=== PATIENT | female | born 1955 | race Two or more races ===

== ENCOUNTER → 2024-05-15 | Outpatient (CLI) | payer MEDICARE, MEDICAID, SELFPAY ==
[2024-05-15 13:40] LABS: Basophils % (Auto) 1 % (0-2.5); Eosinophils # (Auto) 0.2 Thou/mm3 (0.0-0.5); Eosinophils % (Auto) 6 % (0-10); Hematocrit 33.5 % (36.0-46.0); Immature Granulocytes % (Auto) 1 % (0-0); Immature Granulocytes Auto 0.02 Thou/mm3 (0.00-0.00); Lymphocytes # (Auto) 0.9 Thou/mm3 (1.0-4.8); Lymphocytes % (Auto) 22 % (10-50); Mean Corpuscular HGB Conc 32.8 g/dl (31.0-37.0); Mean Corpuscular Hemoglobin 30.4 pg (25.0-35.0); Mean Corpuscular Volume 93 fL (80-100); Monocytes # (Auto) 0.5 Thou/mm3 (0.0-0.8); Monocytes % (Auto) 11 % (0-12); Neutrophils # (Auto) 2.5 Thou/mm3 (1.8-7.7); Neutrophils % (Auto) 61 % (37-80); Nucleated Red Blood Cell % 0 /100 WBC (0); Platelet Count 104 Thou/mm3 (140-440); RDW Standard Deviation 51.2 fL (36.4-46.3); Red Blood Count 3.62 Miln/mm3 (4.00-5.20); White Blood Count 4.1 Thou/mm3 (3.6-11.0)
[2024-05-15 13:55] LABS: Glucose Estimated Average 140 mg/dL (80-131); Hemoglobin A1C 6.5 % Hgb (4.8-6.0)
[2024-05-15 14:09] LABS: Alanine Aminotransferase 36 U/L (10-49); Albumin, Serum 4.1 gm/dL (3.4-4.8); Alkaline Phosphatase 115 U/L (46-116); Anion Gap 8 (7-16); Aspartate Amino Transferase 48 U/L (0-34); BUN/Creatinine Ratio 21 Ratio (12-20); Bilirubin,Direct 0.3 mg/dL (0.0-0.3); Bilirubin,Total 0.8 mg/dL (0.3-1.2); Blood Urea Nitrogen 35 mg/dL (9-23); Calcium 9.1 mg/dL (8.3-10.6); Carbon Dioxide 25.3 mMol/L (20.0-31.0); Cardiac Risk Estimate 2.5 RATIO (3.7-5.6); Chloride 109 mMol/L (98-107); Cholesterol 135 mg/dL (132-200); Creatinine (Component) 1.7 mg/dL (0.6-1.3); Glucose 127 mg/dL (74-106); HDL Cholesterol 54 mg/dL (40-60); LDL Cholesterol,Calculated 62 mg/dL (0-130); Osmolality,Calculated 293 (275-295); Phosphorous 3.7 mg/dL (2.4-5.1); Potassium 4.4 mMol/L (3.4-5.1); Sodium 142 mMol/L (136-145); Total Protein 6.1 gm/dL (5.7-8.2); Triglycerides 96 mg/dL (30-150); eGFR 32 See Note
== END | disposition home or self-care (01) ==
LOC: COPL 12:22
PROVIDERS: PCP Family Medicine; Referring Provider Internal Medicine Cardiovascular Disease; Visit Provider Internal Medicine
DX: I12.9 Hypertensive chronic kidney disease with stage 1 through stage 4 chronic kidney disease, or unspecified chronic kidney disease (principal); E11.22 Type 2 diabetes mellitus with diabetic chronic kidney disease; N18.30 Chronic kidney disease, stage 3 unspecified; E78.5 Hyperlipidemia, unspecified; G90.1 Familial dysautonomia [Riley-Day]; R94.31 Abnormal electrocardiogram [ECG] [EKG]
CPT/HCPCS: 36415; 80048; 80061; 80076; 81001; 82043; 82570; 83036; 83970; 84100; 85025

== ENCOUNTER → 2024-07-09 | Outpatient (CLI) | payer MEDICARE, BC, MEDICAID, SELFPAY | END | disposition home or self-care (01) | PROVIDERS: Visit Provider Student in an Organized Health Care Education/Training Program | DX: S51.811A Laceration without foreign body of right forearm, initial encounter (principal); W55.03XA Scratched by cat, initial encounter; N18.6 End stage renal disease; I82.401 Acute embolism and thrombosis of unspecified deep veins of right lower extremity | CPT/HCPCS: 99214; G0463 ==

== ENCOUNTER → 2024-07-23 | Outpatient (CLI) | payer MEDICARE, MEDICAID, SELFPAY | END | disposition home or self-care (01) | PROVIDERS: PCP Family Medicine; Referring Provider Family Medicine; Visit Provider Student in an Organized Health Care Education/Training Program | DX: S51.811A Laceration without foreign body of right forearm, initial encounter (principal); W55.03XA Scratched by cat, initial encounter; I82.401 Acute embolism and thrombosis of unspecified deep veins of right lower extremity; N18.6 End stage renal disease | CPT/HCPCS: 99212; G0463 ==

== ENCOUNTER → 2024-09-11 | Outpatient (CLI) | payer BC, SELFPAY ==
--- NOTE | 2024-09-11 | XR_ITS ---
Examination: Diagnostic digital mammography, unilateral, right Computer aided detection 3-D breast Tomosynthesis, unilateral Date and time of exam: September 11, 2024 0913 hours INDICATIONS: Mammogram January 29, 2024 1 numerous microcalcifications upper right breast Technique: Nonmagnified MLO, CC views of the right breast have been obtained, reconstructed from 3-D Tomosynthesis images. R2 computer aided detection program utilized for evaluation of suspicious masses and/or abnormal calcifications. 3-D Tomosynthesis images obtained. Findings: The breast is heterogeneously dense, which may obscure small masses Probably benign focus microcalcifications inner right breast posterior depth Impression: BI-RADS category 3: Probably benign findings Recommend 1 additional 6 month right mammogram follow-up
--- NOTE | 2024-09-11 08:29 | XR_ITS ---
Examination: Breast ultrasound, unilateral, right complete Date and time of exam: September 11, 2024 0856 hours INDICATIONS: Mammogram 01/29/2024 more numerous microcalcifications upper right breast mid depth Technique: Real-time gonzalez scale ultrasonographic imaging performed right breast including all 4 quadrants as well as nipple retroareolar and axillary region. Findings: 11:00 cyst 7 x 5 x 7 mm No solid nodules IMPRESSION: BI-RADS Category 2: Benign findings
--- NOTE | 2024-09-11 08:30 | XR_ITS ---
Examination: Duplex scan of the lower extremity, unilateral right complete Date and time of exam: September 11, 2024 0838 hours INDICATIONS: Onset right ankle pain beginning one year ago Technique: Duplex scan of the extremity veins using B-mode/grayscale imaging and Doppler spectral analysis and color flow Attention is directed to internal echogenicity, compression and augmentation involving these veins, color flow assessment, spectral analysis Findings: Major deep venous structures in the extremity demonstrate normal course and caliber. There is no evidence of deep vein thrombosis. Normal color flow and spectral analysis Impression: Negative for DVT..
== END | disposition home or self-care (01) ==
PROVIDERS: PCP Family Medicine; Referring Provider Family Medicine; Visit Provider Family Medicine
DX: M79.661 Pain in right lower leg (principal); R92.331 Mammographic heterogeneous density, right breast; N60.01 Solitary cyst of right breast
CPT/HCPCS: 76641; 77061; 77065; 93971; G0279

== ENCOUNTER → 2024-10-03 | Outpatient (CLI) | payer BC, SELFPAY ==
--- NOTE | 2024-10-03 | XR_ITS ---
Examination: Bilateral wrists 6 views TECHNIQUE: AP oblique lateral each wrist total 6 views Exam date and time: October 03, 2024 11:59 AM INDICATIONS: Patient fell 3 weeks ago with injury to both wrists, bilateral wrist pain, right wrist surgery December 2023 FINDINGS: Erosive arthritic change right first carpometacarpal joint Prominent osteopenia Soft tissue vascular calcification No acute torus fractures IMPRESSION: No acute torus fractures Erosive arthritic change right first carpometacarpal joint
--- NOTE | 2024-10-03 | XR_ITS ---
Examination: Bilateral hands, 6 views. Technique: AP, Oblique, Lateral each hand total 6 views Date and time of exam: October 03, 2024 1150 hours INDICATIONS: Patient fell 3 weeks ago with injury to both hands, bilateral hand pain Findings: Severe osteopenia Soft tissue vascular calcification no acute fractures Erosive arthritic change involving the right first carpometacarpal joint Moderate narrowing left first carpometacarpal joint IMPRESSION: No acute fractures Erosive arthritic change involving the right first carpometacarpal joint
--- NOTE | 2024-10-03 | XR_ITS ---
Exam: elbow bilateral, 6 views Technique: Elbow AP, oblique lateral each elbow total 6 views Exam date and time: October 03, 2024 1150 hours INDICATIONS: Patient fell 3 weeks ago with injury to both elbows, bilateral elbow pain. FINDINGS: Significant osteopenia No fracture or dislocation involving either elbow Soft tissue vascular calcification Mild ossification left lateral humeral condyle IMPRESSION: No fracture or dislocation involving either elbow
== END | disposition home or self-care (01) ==
LOC: CDIM 11:16
PROVIDERS: PCP Family Medicine
DX: M13.841 Other specified arthritis, right hand (principal); M25.842 Other specified joint disorders, left hand; S69.92XA Unspecified injury of left wrist, hand and finger(s), initial encounter; S69.91XA Unspecified injury of right wrist, hand and finger(s), initial encounter; S59.902A Unspecified injury of left elbow, initial encounter; S59.901A Unspecified injury of right elbow, initial encounter; W19.XXXA Unspecified fall, initial encounter
CPT/HCPCS: 73080; 73110; 73130

== ENCOUNTER → 2025-01-20 | Outpatient (CLI) | payer MEDICARE, BC, MEDICAID, SELFPAY ==
[2025-01-20 14:50] LABS: Basophils # (Auto) 0.0 Thou/mm3 (0.0-0.2); Basophils % (Auto) 0 % (0-2.5); Eosinophils # (Auto) 0.1 Thou/mm3 (0.0-0.5); Eosinophils % (Auto) 1 % (0-10); Hematocrit 38.1 % (36.0-46.0); Hemoglobin 13.1 g/dL (12.0-16.0); Immature Granulocytes Auto 0.12 Thou/mm3 (0.00-0.00); Lymphocytes # (Auto) 0.9 Thou/mm3 (1.0-4.8); Lymphocytes % (Auto) 12 % (10-50); Mean Corpuscular HGB Conc 34.4 g/dl (31.0-37.0); Mean Corpuscular Hemoglobin 32.2 pg (25.0-35.0); Mean Corpuscular Volume 94 fL (80-100); Monocytes # (Auto) 0.6 Thou/mm3 (0.0-0.8); Monocytes % (Auto) 8 % (0-12); Neutrophils # (Auto) 6.0 Thou/mm3 (1.8-7.7); Neutrophils % (Auto) 77 % (37-80); Nucleated Red Blood Cell # 0.00 Thou/mm3 (0.00-0.00); Nucleated Red Blood Cell % 0 /100 WBC (0); Platelet Count 124 Thou/mm3 (140-440); RDW Standard Deviation 47.0 fL (36.4-46.3); Red Blood Count 4.07 Miln/mm3 (4.00-5.20); White Blood Count 7.8 Thou/mm3 (3.6-11.0)
[2025-01-20 14:56] LABS: Parathyroid Hormone Intact 137.9 pg/ml (18.5-88.0)
[2025-01-20 15:00] LABS: Vitamin D 25 Hydroxy Total 31.9 ng/mL (7.3-40.2)
[2025-01-20 15:01] LABS: Alanine Aminotransferase 12 U/L (10-49); Albumin, Serum 3.8 gm/dL (3.4-4.8); Albumin/Globulin Ratio 2.1 (1.2-2.2); Alkaline Phosphatase 103 U/L (46-116); Anion Gap 12 (7-16); Aspartate Amino Transferase 22 U/L (0-34); BUN/Creatinine Ratio 10 Ratio (12-20); Bilirubin,Total 0.7 mg/dL (0.3-1.2); Blood Urea Nitrogen 31 mg/dL (9-23); Calcium 9.5 mg/dL (8.3-10.6); Calcium (Corrected) 9.7 mg/dL (8.5-10.1); Carbon Dioxide 25.2 mMol/L (20.0-31.0); Cardiac Risk Estimate 3.8 RATIO (3.7-5.6); Chloride 104 mMol/L (98-107); Cholesterol 215 mg/dL (132-200); Creatinine (Component) 3.1 mg/dL (0.6-1.3); Globulin 1.8 gm/dL (2.3-3.5); Glucose 231 mg/dL (74-106); HDL Cholesterol 56 mg/dL (40-60); LDL Cholesterol,Calculated 121 mg/dL (0-130); Osmolality,Calculated 294 (275-295); Potassium 3.6 mMol/L (3.4-5.1); Sodium 141 mMol/L (136-145); Thyroid Stimulating Hormone 2.14 uIU/mL (0.55-4.78); Total Protein 5.6 gm/dL (5.7-8.2); Triglycerides 191 mg/dL (30-150); eGFR 16 See Note
[2025-01-20 15:12] LABS: Glucose Estimated Average 171 mg/dL (80-131); Hemoglobin A1C 7.6 % Hgb (4.8-6.0)
== END | disposition home or self-care (01) ==
PROVIDERS: PCP Family Medicine; Referring Provider Internal Medicine; Visit Provider Family Medicine
DX: Z00.00 Encounter for general adult medical examination without abnormal findings (principal); E11.40 Type 2 diabetes mellitus with diabetic neuropathy, unspecified; E78.2 Mixed hyperlipidemia; I12.9 Hypertensive chronic kidney disease with stage 1 through stage 4 chronic kidney disease, or unspecified chronic kidney disease; E11.22 Type 2 diabetes mellitus with diabetic chronic kidney disease; N18.32 Chronic kidney disease, stage 3b; E03.9 Hypothyroidism, unspecified
CPT/HCPCS: 36415; 80053; 80061; 81001; 82043; 82306; 82570; 83036; 83970; 84443; 85025

== ENCOUNTER → 2025-01-27 | Outpatient (CLI) | payer MEDICARE, BC, MEDICAID, SELFPAY ==
[2025-01-27 11:09] LABS: Collection Type, Urine Clean Catch
[2025-01-27 11:47] LABS: Creatinine MALB Rnd Ur 79 mg/dL (30-125); Microalbumin Creat Ratio 481 mg/gCrea (<30); Microalbumin, Random Urine > 380 mg/L (0-300)
[2025-01-27 15:06] LABS: Bilirubin,Urine Negative (Negative); Blood,Urine Negative (Negative); Clarity,Urine Clear (Clear/Hazy); Color,Urine Lt-Yellow (Lt Yel-Yel); Glucose, Urine 2+ (Negative); Ketones,Urine Negative (Negative); Leukocyte Esterase,Urine Negative (Negative); Nitrite,Urine Negative (Negative); PH,Urine 6.0 (5.0-7.0); Protein,Urine 2+ (Neg - Trace); RBC,Urine 7 /hpf (0-3); Specific Gravity,Urine 1.015 (1.001-1.035); Squamous Epithelial Cell,Urine 1 /hpf (0-5); Urobilinogen,Urine Negative mg/dL (0.0-1.0); WBC,Urine 2 /hpf (0-5)
== END | disposition home or self-care (01) ==
LOC: SLDO 10:59
PROVIDERS: PCP Family Medicine; Referring Provider Family Medicine; Visit Provider Family Medicine
DX: Z00.00 Encounter for general adult medical examination without abnormal findings (principal); E11.40 Type 2 diabetes mellitus with diabetic neuropathy, unspecified; E78.2 Mixed hyperlipidemia; I12.9 Hypertensive chronic kidney disease with stage 1 through stage 4 chronic kidney disease, or unspecified chronic kidney disease; E03.9 Hypothyroidism, unspecified; N18.32 Chronic kidney disease, stage 3b
CPT/HCPCS: 81001; 82043; 82570

== ENCOUNTER → 2025-04-24 | Outpatient (CLI) | payer MEDICARE, BC, MEDICAID, SELFPAY ==
[2025-04-24 16:59] LABS: Collection Type, Urine Clean Catch
[2025-04-24 17:13] LABS: Basophils # (Auto) 0.0 Thou/mm3 (0.0-0.2); Basophils % (Auto) 1 % (0-2.5); Eosinophils # (Auto) 0.1 Thou/mm3 (0.0-0.5); Eosinophils % (Auto) 1 % (0-10); Hematocrit 36.3 % (36.0-46.0); Hemoglobin 12.7 g/dL (12.0-16.0); Immature Granulocytes Auto 0.08 Thou/mm3 (0.00-0.00); Lymphocytes # (Auto) 0.9 Thou/mm3 (1.0-4.8); Lymphocytes % (Auto) 16 % (10-50); Mean Corpuscular HGB Conc 35.0 g/dl (31.0-37.0); Mean Corpuscular Hemoglobin 31.1 pg (25.0-35.0); Mean Corpuscular Volume 89 fL (80-100); Monocytes # (Auto) 0.4 Thou/mm3 (0.0-0.8); Monocytes % (Auto) 6 % (0-12); Neutrophils # (Auto) 4.4 Thou/mm3 (1.8-7.7); Neutrophils % (Auto) 75 % (37-80); Nucleated Red Blood Cell # 0.00 Thou/mm3 (0.00-0.00); Nucleated Red Blood Cell % 0 /100 WBC (0); Platelet Count 139 Thou/mm3 (140-440); RDW Standard Deviation 44.5 fL (36.4-46.3); Red Blood Count 4.08 Miln/mm3 (4.00-5.20); White Blood Count 5.9 Thou/mm3 (3.6-11.0)
[2025-04-24 17:15] LABS: Bacteria,Urine Rare; Bilirubin,Urine 1+ (Negative); Blood,Urine 2+ (Negative); Color,Urine Yellow (Lt Yel-Yel); Glucose, Urine 4+ (Negative); Hyaline Casts,Urine < 1 /hpf (0-1); Ketones,Urine Trace (Negative); Leukocyte Esterase,Urine Negative (Negative); Nitrite,Urine Negative (Negative); PH,Urine 6.5 (5.0-7.0); Protein,Urine 3+ (Neg - Trace); RBC,Urine 7 /hpf (0-3); Specific Gravity,Urine 1.034 (1.001-1.035); Squamous Epithelial Cell,Urine 9 /hpf (0-5); Urobilinogen,Urine Negative mg/dL (0.0-1.0); WBC,Urine 18 /hpf (0-5)
[2025-04-24 17:22] LABS: Glucose Estimated Average 200 mg/dL (80-131); Hemoglobin A1C 8.6 % Hgb (4.8-6.0); Parathyroid Hormone Intact 124.8 pg/ml (18.5-88.0)
[2025-04-24 17:25] LABS: Albumin, Serum 3.8 gm/dL (3.4-4.8); Anion Gap 11 (7-16); BUN/Creatinine Ratio 9 Ratio (12-20); Blood Urea Nitrogen 28 mg/dL (9-23); Calcium 8.8 mg/dL (8.3-10.6); Calcium (Corrected) 9.0 mg/dL (8.5-10.1); Carbon Dioxide 22.8 mMol/L (20.0-31.0); Chloride 107 mMol/L (98-107); Creatinine (Component) 3.1 mg/dL (0.6-1.3); Glucose 252 mg/dL (74-106); Magnesium 1.5 mg/dL (1.6-2.6); Osmolality,Calculated 295 (275-295); Phosphorous 3.3 mg/dL (2.4-5.1); Potassium 3.8 mMol/L (3.4-5.1); Sodium 141 mMol/L (136-145); eGFR 16 See Note
[2025-04-24 17:35] LABS: Creatinine MALB Rnd Ur 279 mg/dL (30-125)
[2025-04-24 17:36] LABS: Microalbumin Creat Ratio 1362 mg/gCrea (<30); Microalbumin, Random Urine > 3800 mg/L (0-300)
[2025-04-24 17:58] LABS: Clarity,Urine Hazy (Clear/Hazy); Culture Indicated,Urine Yes
[2025-04-24 18:16] LABS: Hepatitis A Antibody IgM Non Reactive (Non React); Hepatitis B Core Antibody IgM Non Reactive (Non React); Hepatitis B Surface Antigen Non Reactive (Non React); Hepatitis C Antibody Non Reactive (Non React)
== END | disposition home or self-care (01) ==
LOC: COPL 16:17
PROVIDERS: PCP Family Medicine; Referring Provider Internal Medicine; Visit Provider Internal Medicine
DX: I12.9 Hypertensive chronic kidney disease with stage 1 through stage 4 chronic kidney disease, or unspecified chronic kidney disease (principal); E11.22 Type 2 diabetes mellitus with diabetic chronic kidney disease; N18.4 Chronic kidney disease, stage 4 (severe); E78.5 Hyperlipidemia, unspecified
CPT/HCPCS: 36415; 80069; 80074; 81001; 82043; 82570; 83036; 83735; 83970; 85025; 87077; 87086; 87186

== ENCOUNTER → 2025-04-24 | Outpatient (CLI) | payer MEDICARE, BC, MEDICAID, SELFPAY ==
[2025-04-24 14:16] LABS: Collection Type, Urine Clean Catch
[2025-04-24 15:36] LABS: Bacteria,Urine Rare; Bilirubin,Urine Negative (Negative); Blood,Urine 1+ (Negative); Color,Urine Yellow (Lt Yel-Yel); Glucose, Urine 3+ (Negative); Ketones,Urine 1+ (Negative); Leukocyte Esterase,Urine Positive (Negative); Nitrite,Urine Negative (Negative); PH,Urine 6.0 (5.0-7.0); Protein,Urine 3+ (Neg - Trace); RBC,Urine 11 /hpf (0-3); Specific Gravity,Urine 1.029 (1.001-1.035); Squamous Epithelial Cell,Urine 46 /hpf (0-5); Urobilinogen,Urine Negative mg/dL (0.0-1.0); WBC,Urine 28 /hpf (0-5)
[2025-04-24 15:46] LABS: Clarity,Urine Hazy (Clear/Hazy)
== END | disposition home or self-care (01) ==
PROVIDERS: PCP Family Medicine; Referring Provider Family Medicine; Visit Provider Family Medicine
DX: R31.0 Gross hematuria (principal)
CPT/HCPCS: 81001; 87077; 87086; 87186

== ENCOUNTER 2025-04-26 09:41 | Inpatient (IN) | payer MEDICARE, BC, MEDICAID, SELFPAY ==
--- NOTE | 2025-04-26 | XR_ITS ---
Examinations: MRI Brain without intravenous contrast. MRA brain without intravenous contrast. MRA carotids without intravenous contrast 3-D vascular reconstructions Date and time of exam: April 26, 2025, 1745 hours INDICATIONS: Stroke alert today, onset focal neurologic deficit head pain difficulty speaking Technique: Multiple axial and sagittal images of the brain have been obtained MRA brain carotid images without contrast obtained, including 3-D postprocessing, vascular maximum intensity projection images Findings: Sell[place] is not enlarged. The optic chiasm and infundibular stalk are not remarkable. Prepontine and interpeduncular cisterns are not enlarged. No localized enlargement of the medulla or navid. Fourth ventricle and cerebellar tonsils normal in position. Subacute hemorrhage is not seen. Fourth ventricle is midline. Mass in the cerebellopontine angle region is not evident. 7th and 8th nerve complexes exhibits symmetry. Globes are symmetrical with no retro-orbital mass. Increased white matter signal prominent Diffusion-weighted images demonstrate no focus of restricted diffusion Mass-effect upon the ventricular system is not identified. MRA brain images no large vessel occlusions Impression: Negative for acute hemorrhage, mass effect or midline shift No acute infarct Prominent chronic microvascular white matter change No cerebral large vessel arterial occlusions
--- NOTE | 2025-04-26 09:43 | PD.EDNEURO ---
Neuro Symptoms Deficit-RME/HPI General Chief Complaint: Neuro Symptoms/Deficit Stated Complaint: STOKE SYMPTOMS Time Seen by Provider: 04/26/25 09:53 Arrival date/time: 04/26/25 09:41 Related Data Home Medications ?Medication ?Instructions ?Recorded ?Confirmed calcitriol 0.25 mcg capsule 0.25 mcg PO DAILY 04/29/22 04/26/25 insulin glargine U-300 conc 300 20 unit subcut DAILY 04/29/22 04/26/25 unit/mL (3 mL) subcutaneous pen (Toujeo Max U-300 SoloStar) meclizine 25 mg tablet 25 mg PO TID PRN Dizziness 04/29/22 04/26/25 montelukast 10 mg tablet 10 mg PO DAILY 04/29/22 04/26/25 pregabalin 150 mg capsule 150 mg PO BID 04/29/22 04/26/25 rosuvastatin 40 mg tablet 25 mg PO DAILY 04/29/22 04/26/25 valsartan 160 mg tablet 160 mg PO EVERYOTHERDAY 04/29/22 04/26/25 albuterol sulfate 90 mcg/actuation 2 puff inhalation QDAY 04/26/25 04/26/25 aerosol inhaler amlodipine 2.5 mg tablet 2.5 mg PO QDAY 04/26/25 04/26/25 clopidogrel 75 mg tablet 75 mg PO QDAY 04/26/25 04/26/25 donepezil 5 mg tablet 5 mg PO QDAY 04/26/25 04/26/25 fluticasone 500 mcg-salmeterol 50 1 inh inhalation BID 04/26/25 04/26/25 mcg/dose blistr powdr for inhalation (Wixela Inhub) hydrocodone 10 mg-acetaminophen 1 tab PO Q6HR 04/26/25 04/26/25 325 mg tablet levothyroxine 100 mcg tablet 100 mcg PO QDAY 04/26/25 04/26/25 tirzepatide 10 mg/0.5 mL 10 mg subcut QWEEK 04/26/25 04/26/25 subcutaneous pen injector (Sary) zinc sulfate 50 mg zinc (220 mg) 50 mg PO DAILY 04/26/25 04/26/25 capsule Previous Rx's ?Medication ?Instructions ?Recorded blood-glucose sensor (CarolineStyle #1 ea 04/28/25 Darek 3 Plus Sensor device) blood-glucose,closet organizer,cont #1 ea 04/28/25 (FreeStyle Darek 3 [place]) Allergies Allergy/AdvReac Type Severity Reaction Status Date / Time moxifloxacin (From Avelox) Allergy ITCHING Verified 04/26/25 10:25 Past Medical History Past Medical History CARDIAC: Positive Hypercholesterolemia and Hypertension RESPIRATORY: Positive Asthma GENITOURINARY: Positive Renal Disease MUSCULOSKELETAL: Positive Carpal Tunnel Syndrome (RIGHT HAND) ENT: Positive Cataracts (BILATERAL) ENDOCRINE: Positive Diabetes Mellitus Type 2 OTHER HISTORY: Positive Falls Surgical History SURGICAL: Positive Thyroidectomy ED Exam Narrative Physical exam: See MDM for Dr. Smith's Physical Exam Documentation. Course Quality Measures none Orders Category Date Time Status Bedside Blood Glucose NOW Care 04/26/25 09:44 Completed Bedside COVID-19 Antigen Test NOW Care 04/26/25 09:45 Completed Bedside Influenza A&B Antigen Test NOW Care 04/26/25 09:45 Completed COVID-19 Screening Questionnaire NOW Care 04/26/25 11:56 Completed Laboratory Director Q4H START 00 Care 04/26/25 09:44 Active Continuous Pulse Oximetry NOW Care 04/26/25 09:44 Completed Decision to Admit X1 Care 04/26/25 11:56 Completed EKG (ED ONLY) *Do not use* NOW Care 04/26/25 09:44 Completed In and Out Catheter NEEDED Care 04/26/25 09:44 Active Insert IV NOW Care 04/26/25 09:44 Completed NIH Stroke Scale now Care 04/26/25 09:44 Completed NPO NOW Care 04/26/25 09:44 Completed Nurse Swallow Screen x1 Care 04/26/25 09:[address] angio stroke protocol Stat Exams 04/26/25 09:[address] stroke protocol Stat Exams 04/26/25 09:44 Completed EKG (ED Only) Stat Exams 04/26/25 09:44 Draft XR chest 1V portable Stat Exams 04/26/25 09:44 Completed Alcohol, Blood Medical Stat Lab 04/26/25 10:03 Completed B-Type Natriuretic Peptide Stat Lab 04/26/25 10:03 Completed Bilirubin,Direct Stat Lab 04/26/25 10:03 Completed Blood Culture (Lab) Stat Lab 04/26/25 10:48 Results CBC Stat Lab 04/26/25 10:03 Completed CRP [C-Reactive Protein] Stat Lab 04/26/25 10:03 Completed Comprehensive Metabolic Panel Stat Lab 04/26/25 10:03 Completed Drug Screen,Urine Stat Lab 04/26/25 20:55 Completed ESR [Sed Rate (ESR)] Stat Lab 04/26/25 10:03 Completed Free T4 (Free Thyroxine) Stat Lab 04/26/25 10:03 Completed Hemoglobin A1C [Glycohemoglobin w (eAG)] Stat Lab 04/26/25 10:03 Completed Lactate (Lactic Acid) Stat Lab 04/26/25 10:03 Completed Magnesium Stat Lab 04/26/25 10:03 Completed Partial Thromboplastin Time Stat Lab 04/26/25 10:03 Completed Procalcitonin Stat Lab 04/26/25 10:03 Completed Prothrombin Time with INR Stat Lab 04/26/25 10:03 Completed TSH [Thyroid Stimulating Hormone] Stat Lab 04/26/25 10:03 Completed Troponin I Stat Lab 04/26/25 10:03 Completed Urinalysis, C/S if Indicated Stat Lab 04/26/25 20:55 Completed Labetalol* IV [Trandate IV] Med 04/26/25 09:44 Discontinued 10 mg IVP Q15M PRN Ondansetron Inj [Zofran Inj] Med 04/26/25 09:44 Active 4 mg IVP Q4HR PRN Ringers Lactated 1000 ml [Lactated Ringers] 1,000 ml Med 04/26/25 09:45 Discontinued IV 500 mls/hr Oxygen Delivery NOW RT 04/26/25 09:44 Active Vital Signs Vital signs: Vital Signs Pulse Rate 65 04/26/25 09:44 Neuro Symptoms / Deficit MDM Narrative MDM Narrative:: This section includes all my notes and documentations, including HPI, PE, and ED course. Young Smith MD HPI: 69 y/o female with Hx of HTN, HLD, Type II DM, and Renal Disease presents with possible stroke. Since last night, she and family report weakness with inability to stand and walk and slurred speech. No obvious right-sided weakness or left-sided weakness. No fever or chills. No other complaints. ROS: All negative except as documented in HPI. Physical Exam: General: Alert and oriented. Eyes: Conjunctivae and lids clear. EOMI. PERRL. ENT: No nasal congestion. Neck: Supple. No carotid bruit. No JVD. Heart: RRR. Lungs: No respiratory distress. Good air movement. No severe rhonchi, wheezing, rales. Chest: No tenderness. Abdomen: Soft and nontender. Normal bowel sounds. No distension. No rebound or guarding. Back: No CVA tenderness. Legs: No clubbing, cyanosis, edema. Skin: Warm and dry. Neuro: Alert and oriented X 3. Cranial Nerves II-XII grossly intact. No asymmetrical peripheral motor deficits. Musculoskeletal: All major joints and bones are not tender with no limited ROM. I reviewed EMS notes. I reviewed all diagnostic test results: My interpretation of the EKG is: Sinus rhythm (71 bpm) with nonspecific ST-T changes. My interpretation of the chest x-ray is increased vascular congestion. My review of the Head/Brain CT report is subtle low density in the right temporal lobe. My review of the Head/Neck CTA report is: NAD. Blood tests and urine tests unremarkable except Cr 3.0 (chronic). Covid/Influenza negative. At this point, diagnoses include: Strokelike symptoms. Patient remained stable. I discussed the case with our telehealth neurologist. About the presentation and exam and diagnostics and treatments here. Recommended admission for further care. I discussed the case with our hospitalist. About the presentation and exam and diagnostics and treatments here. And need of further care in the hospital. Will accept the patient. Young Smith MD Patient data External records reviewed:: [facility] previous records (No recent ED records available for review.) and EMS form Clinical information provided by:: EMS Social determinants that could affect healthcare access:: none Patient has the following chronic illnesses:: Hypercholesterolemia, Hypertension, Asthma, Renal Disease, Carpal Tunnel Syndrome, Cataracts, Diabetes Mellitus Type 2 How is presenting disease/condition affected by chronic disease/condition?: exacerbated by Evaluation data The following diagnostics were reviewed and interpreted by me:: lab results, radiology exam(s) and EKG tracing(s) (My interpretation of the EKG is: Sinus rhythm (71 bpm) with nonspecific ST-T changes. Young Smith MD) Lab and/or radiology exams considered but not ordered:: None Interpretation Summary: I reviewed all diagnostic test results: My interpretation of the EKG is: Sinus rhythm (71 bpm) with nonspecific ST-T changes. My interpretation of the chest x-ray is increased vascular congestion. My review of the Head/Brain CT report is subtle low density in the right temporal lobe. My review of the Head/Neck CTA report is: NAD. Blood tests and urine tests unremarkable except Cr 3.0 (chronic). Covid/Influenza negative. Medications / Prescriptions Medications or Prescriptions considered but not ordered:: None Medication administrations:: Medication Administration History Acetaminophen (Acetaminophen 325 Mg Tablet) 650 mg PO Q6H PRN PRN Reason: Fever >100.5 or pain 1-3 Stop: 05/26/25 13:00 Hydrocodone Bitart/Acetaminophen (Hydrocodone/Apap 10/325 Tab) 1 tab PO Q4HR PRN PRN Reason: PAIN SCALE 7-10 (Severe Stop: 05/01/25 13:00 Last Admin: 04/26/25 15:34 Dose: 1 tab Documented By: DIA Ascorbic Acid (Ascorbic Acid 250 Mg Tablet) 500 mg PO BID FOR[facility]LY [facility], 1928–1983 Stop: 05/27/25 08:59 Last Admin: 04/28/25 21:35 Dose: 500 mg Documented By: Admin: 04/28/25 08:31 Dose: 500 mg Documented By: santo Admin: 04/27/25 21:08 Dose: 500 mg Documented By: Admin: 04/27/25 09:09 Dose: Not Given Documented By: SHAYLA Non-Admin Reason: Patient Refused Aspirin (Aspirin Ec 81 Mg Tabec) 81 mg PO QDAY [facility], [facility]1983 Stop: 05/27/25 08:59 Last Admin: 04/28/25 08:31 Dose: 81 mg Documented By: santo Admin: 04/27/25 08:09 Dose: 81 mg Documented By: SHAYLA Calcitriol (Calcitriol 0.25 Mcg Capsule) 0.25 mcg PO QDAY [facility], [facility]–1983 Stop: 05/27/25 10:14 Last Admin: 04/28/25 08:30 Dose: 0.25 mcg Documented By: santo Admin: 04/27/25 10:08 Dose: Not Given Documented By: SHAYLA Non-Admin Reason: NPO Citric Acid/Sodium Citrate (Citric Acid/Sodium Citr 15 Ml Udc (Bicitra)) 30 ml PO BID [facility], [facility]–1983 Stop: 05/27/25 20:59 Last Admin: 04/28/25 21:35 Dose: 30 ml Documented By: Admin: 04/28/25 08:30 Dose: 30 ml Documented By: santo Admin: 04/27/25 21:08 Dose: 30 ml Documented By: CATHLEEN Clopidogrel Bisulfate (Clopidogrel Bisulfate 75 Mg Tablet) 75 mg PO QDAY [facility], [facility]–1983 Stop: 05/27/25 08:59 Last Admin: 04/28/25 08:30 Dose: 75 mg Documented By: santo Admin: 04/27/25 08:10 Dose: 75 mg Documented By: [email or web address] Dextrose (Dextrose 50%-Water Inj 50 Ml Syringe) 25 ml IV Q15MIN PRN PRN Reason: BG 50-70 responsive npo pt Stop: 05/26/25 13:14 Dextrose (Dextrose 50%-Water Inj 50 Ml Syringe) 50 ml IV Q15MIN PRN PRN Reason: BG <50 OR BG <70 & pt unresponsive Stop: 05/26/25 13:14 Donepezil HCl (Donepezil Hcl 5 Mg Tablet) 5 mg PO QDAY [facility], [facility]–1983 Stop: 05/27/25 08:59 Last Admin: 04/28/25 08:30 Dose: 5 mg Documented By: santo Admin: 04/27/25 08:10 Dose: 5 mg Documented By: [email or web address] Glucagon (Glucagon Inj 1 Mg Vial) 1 mg IM Q15MIN PRN PRN Reason: BG <70, and no IV access Insulin Human Lispro (Insulin Lispro (Admelog) 1 Unit/0.01 Ml Unit) 0 unit SC [facility]; Protocol Stop: 05/28/25 20:59 Last Admin: 04/28/25 21:48 Dose: 2 unit Documented By: CATHLEEN Co-signed By: JANIS Labetalol HCl (Labetalol Inj 5 Mg/Ml Vial 4 Ml) 10 mg IVP X1 PRN PRN Reason: sbp > 220 or dbp >120 Levothyroxine Sodium (Levothyroxine Sodium 100 Mcg Tablet) 100 mcg PO ACBR [facility], [facility]1983 Stop: 05/27/25 05:59 Last Admin: 04/28/25 05:16 Dose: 100 mcg Documented By: Admin: 04/27/25 05:21 Dose: 100 mcg Documented By: CATHLEEN Comments: okay to give po meds with a sip of water per dr irene Meclizine HCl (Meclizine Hcl 25 Mg Tablet) 25 mg PO TID PRN PRN Reason: DIZZINESS Stop: 05/26/25 16:56 Montelukast Sodium (Montelukast Sodium 10 Mg Tablet) 10 mg PO DAILY [facility], [facility]1983 Stop: 05/27/25 08:59 Last Admin: 04/28/25 08:31 Dose: 10 mg Documented By: santo Admin: 04/27/25 08:10 Dose: 10 mg Documented By: SHAYLA Nifedipine (Nifedipine Xl 30 Mg Tabcr) 30 mg PO QDAY [facility], [facility]1983 Stop: 05/28/25 08:59 Last Admin: 04/28/25 08:58 Dose: 30 mg Documented By: santo Ondansetron HCl (Ondansetron Inj 2 Mg/Ml Inj 2 Ml) 4 mg IVP Q4HR PRN PRN Reason: NAUSEA OR VOMITING Stop: 05/26/25 09:43 Oxycodone/Acetaminophen (Oxycodone/Apap 5/325 Tablet) 1 tab PO Q6H PRN PRN Reason: PAIN SCALE 4-6 (Moderate Stop: 05/01/25 13:00 Pantoprazole Sodium (Pantoprazole Inj 40 Mg Vial) 40 mg IVP BID [facility], [facility]1983 Stop: 05/26/25 20:59 Last Admin: 04/28/25 21:35 Dose: 40 mg Documented By: Admin: 04/28/25 08:30 Dose: 40 mg Documented By: santo Admin: 04/27/25 21:08 Dose: 40 mg Documented By: Admin: 04/27/25 08:09 Dose: 40 mg Documented By: Admin: 04/26/25 22:16 Dose: 40 mg Documented By: CATHLEEN Fluticasone/Salmeterol (Fluticasone/Salmeterol 100/50 14 Dose Inh) 1 puff INH BIDRT [facility], [facility]1983 Stop: 05/26/25 18:59 Last Admin: 04/28/25 19:44 Dose: 1 puff Documented By: Admin: 04/28/25 08:15 Dose: 1 puff Documented By: Admin: 04/27/25 19:56 Dose: 1 puff Documented By: Admin: 04/27/25 13:43 Dose: 1 puff Documented By: Admin: 04/26/25 19:51 Dose: 1 puff Documented By: [email or web address] Comments: 100/50 Thiamine HCl (Thiamine Inj 100 Mg/Ml Vial 2 Ml) 200 mg IVP QDAY [facility], [facility]1983 Stop: 05/27/25 08:59 Last Admin: 04/28/25 08:30 Dose: 200 mg Documented By: santo Admin: 04/27/25 09:10 Dose: Not Given Documented By: SHAYLA Non-Admin Reason: Patient Refused Zinc Sulfate (Zinc Sulfate 220 Mg Capsule) 220 mg PO QDAY [facility], [facility]1983 Stop: 05/27/25 08:59 Last Admin: 04/28/25 08:30 Dose: 220 mg Documented By: santo Admin: 04/27/25 09:10 Dose: Not Given Documented By: SHAYLA Non-Admin Reason: Patient Refused Discontinued Medications Amlodipine Besylate (Amlodipine Besylate 2.5 Mg Tablet) 2.5 mg PO QDAY [facility], [facility]1983 Stop: 05/27/25 08:59 Last Admin: 04/28/25 08:31 Dose: 2.5 mg Documented By: santo Admin: 04/27/25 08:09 Dose: 2.5 mg Documented By: SHAYLA Amlodipine Besylate (Amlodipine Besylate 2.5 Mg Tablet) 5 mg PO QDAY [facility], [facility]1983 Stop: 05/29/25 08:59 Benzocaine (Benzocaine 20% (Hurricaine) Lutsen 1 Dose) 0 dose TOP X1 ONE Stop: 04/27/25 16:23 Diphenhydramine HCl (Diphenhydramine Inj 50 Mg/Ml Vial) 25 mg IVP PRNMRX1 PRN PRN Reason: MODERATE SEDATION Stop: 04/27/25 18:23 Diphenhydramine HCl (Diphenhydramine Inj 50 Mg/Ml Vial) Confirm Administered Dose 50 mg .ROUTE .STK-MED ONE Stop: 04/27/25 16:35 Diphenhydramine HCl (Diphenhydramine Inj 50 Mg/Ml Vial) Confirm Administered Dose 50 mg .ROUTE .STK-MED ONE Stop: 04/28/25 17:00 Diphenhydramine HCl (Diphenhydramine Inj 50 Mg/Ml Vial) 25 mg IVP PRNMRX1 PRN PRN Reason: MODERATE SEDATION Stop: 04/28/25 19:12 Fentanyl Citrate (Fentanyl Cit Inj 50 Mcg/Ml Amp 2ml) 50 mcg IVP Q2M PRN PRN Reason: MODERATE SEDATION Stop: 04/27/25 18:23 Fentanyl Citrate (Fentanyl Cit Inj 50 Mcg/Ml Amp 2ml) Confirm Administered Dose 100 mcg .ROUTE .STK-MED ONE Stop: 04/27/25 16:35 Fentanyl Citrate (Fentanyl Cit Inj 50 Mcg/Ml Amp 2ml) Confirm Administered Dose 100 mcg .ROUTE .STK-MED ONE Stop: 04/28/25 17:00 Fentanyl Citrate (Fentanyl Cit Inj 50 Mcg/Ml Amp 2ml) 50 mcg IVP Q2M PRN PRN Reason: MODERATE SEDATION Stop: 04/28/25 19:12 Heparin Sodium (Porcine) (Heparin Sod Inj 5000 Unit/Ml Vial) 5,000 unit SC Q12HR [facility], [facility]1983 Stop: 05/10/25 20:59 Hydralazine HCl (Hydralazine Hcl 10 Mg Tablet) 10 mg PO X1 ONE Stop: 04/27/25 00:51 Last Admin: 04/27/25 02:25 Dose: 10 mg Documented By: CATHLEEN Lactated Ringer's (Lactated Ringers) 1,000 mls @ 500 mls/hr IV .Q2H ONE Stop: 04/26/25 11:44 Last Infusion: 04/26/25 12:35 Dose: Infused Documented By: Admin: 04/26/25 10:35 Dose: 500 mls/hr Documented By: DIA Insulin Human Lispro (Insulin Lispro (Admelog) 1 Unit/0.01 Ml Unit) 0 unit SC Q6HR JAYLYN; Protocol Stop: 05/26/25 13:29 Last Admin: 04/28/25 11:57 Dose: 2 unit Documented By: santo Co-signed By: JAMISON Admin: 04/28/25 05:17 Dose: Not Given Documented By: CATHLEEN Non-Admin Reason: Per Protocol Admin: 04/28/25 00:29 Dose: Not Given Documented By: CATHLEEN Non-Admin Reason: Per Protocol Admin: 04/27/25 17:52 Dose: Not Given Documented By: SHAYLA Non-Admin Reason: Per Protocol Admin: 04/27/25 11:19 Dose: Not Given Documented By: SHAYLA Non-[place] Reason: Per Protocol Admin: 04/27/25 05:33 Dose: Not Given Documented By: CATHLEEN Non-Admin Reason: Per Protocol Admin: 04/27/25 02:30 Dose: Not Given Documented By: CATHLEEN Non-Admin Reason: Per Protocol Admin: 04/26/25 19:01 Dose: Not Given Documented By: DIA Non-Admin Reason: Per Protocol Admin: 04/26/25 15:31 Dose: 1 unit Documented By: DIA Co-signed By: DEE DEE Labetalol HCl (Labetalol Inj 5 Mg/Ml Vial 4 Ml) 10 mg IVP Q15M PRN PRN Reason: hypertension Last Admin: 04/26/25 11:43 Dose: 10 mg Documented By: Admin: 04/26/25 10:34 Dose: 10 mg Documented By: DIA Comments: HR 65 BP 215/89 Lorazepam (Lorazepam 2 Mg/Ml Vial) 2 mg IVP X1 ONE Stop: 04/26/25 16:58 Last Admin: 04/26/25 17:08 Dose: 2 mg Documented By: DIA Meperidine HCl (Meperidine Inj 50 Mg/Ml Vial) 25 mg IVP Q2M PRN PRN Reason: MODERATE SEDATION Stop: 04/27/25 18:23 Midazolam HCl (Midazolam Inj 1 Mg/Ml Vial 2 Ml) 2 mg IVP Q2M PRN PRN Reason: Moderate Sedation Stop: 04/27/25 18:22 Midazolam HCl (Midazolam Inj 1 Mg/Ml Vial 2 Ml) Confirm Administered Dose 4 mg .ROUTE .STK-MED ONE Stop: 04/27/25 16:35 Midazolam HCl (Midazolam Inj 1 Mg/Ml Vial 2 Ml) Confirm Administered Dose 4 mg .ROUTE .STK-MED ONE Stop: 04/28/25 17:00 Midazolam HCl (Midazolam Inj 1 Mg/Ml Vial 2 Ml) 2 mg IVP Q2M PRN PRN Reason: Moderate Sedation Stop: 04/28/25 19:12 Polyethylene Glycol/Electrolytes (Na Berry/Nahco3/Pramod/Peg (Golytely) 4,000 Ml Btl) 4,000 ml PO X1 PRN PRN Reason: BOWEL PREP Last Admin: 04/27/25 17:52 Dose: 1 bottle Documented By: SHAYLA Pregabalin (Pregabalin 75 Mg Capsule) 150 mg PO BID JAYLYN Stop: 05/27/25 08:59 Last Admin: 04/27/25 09:09 Dose: Not Given Documented By: SHAYLA Non-Admin Reason: Patient Refused Tuberculin PPD (Tuberculin Ppd Inj 5 Unit/0.1 Ml Dose) 5 unit ID X1 ONE Stop: 04/27/25 10:00 Last Admin: 04/27/25 11:46 Dose: 5 unit Documented By: [email or web address] Vitamin B Complex/Vit C/Folic Acid (Vitamin B Complex Tablet) 1 tab PO X1 ONE Stop: 04/26/25 17:09 Last Admin: 04/26/25 19:01 Dose: 1 tab Documented By: TM Zinc Sulfate (Zinc Sulfate 220 Mg Capsule) 220 mg PO X1 ONE Stop: 04/26/25 17:09 Last Admin: 04/26/25 19:01 Dose: 220 mg Documented By: DIA No treatment from me. Consultations Consultation(s) initiated? (list below): Yes Consultation #1 (Physician, Specialty, Details): I discussed the case with our telehealth neurologist. About the presentation and exam and diagnostics and treatments here. Recommended admission for further care. I discussed the case with our hospitalist. About the presentation and exam and diagnostics and treatments here. And need of further care in the hospital. Will accept the patient. Diagnosis Neuro Differential Diagnosis: convulsions, delirium, subarachnoid hemorrhage, cerebrovascular accident and transient cerebral ischemia Most likely diagnosis given after review of the tests above:: Strokelike symptoms Admission Indicated Admission indicated?: indicated Explain why admission is indicated or not indicated:: Possible stroke Admission Request Was there a request for admission?: Yes Admission Attestation Admission request attestation: Discussed case with Hospitalist service regarding admission. Discussed patients ED course, exam findings, labs, and radiology results. Agreed to accept the patient for admission. Disposition Plan Disposition Plan: Admit Critical Care Time Critical Care Time Critical Care Time: Yes Total Critical Care Time (min.): 36 Attestation: Due to a high probability of clinically significant, life threatening deterioration, the patient required my highest level of preparedness to intervene emergently and I personally spent this critical care time directly and personally managing the patient. This critical care time included obtaining a history; examining the patient; ordering and review of studies; arranging urgent treatment with development of a management plan; evaluation of patient's response to treatment; frequent reassessment; and discussions with family and other providers. It was exclusive of separately billable procedures and treating other patients and teaching time. Young Smith MD Discharge Plan Plan Patient Disposition: Admit Acute Care w/in Hospital Problem List Clinical Impression: Stroke-like symptoms
[2025-04-26 09:44] VITALS: PULSE 65
--- NOTE | 2025-04-26 09:44 | EKG_ITS ---
[facility] Test Date: 2025-04-26 Pat Name: ALOK PASCUAL Department: Room: - Gender: Female [employer]: : 1955 Requested By: Young Menchaca Order Number: [id number] Reading MD: Young Menchaca Measurements Intervals [place] Rate: 71 P: 62 MT: 153 QRS: 18 QRSD: 89 T: 137 QT: 402 QTc: 439 Interpretive Statements SINUS RHYTHM MODERATE T-WAVE ABNORMALITY, CONSIDER LATERAL ISCHEMIA [-0.1+ mV T-WAVE IN I/aVL/V5/V6] No previous ECG available for comparison /store/S0/[id number]/[id number].pdf
--- NOTE | 2025-04-26 09:44 | XR_ITS ---
Examination: CT brain head without contrast. 2-D sagittal coronal reconstructions Date and time of exam: April 26, 2025, 0952 hours INDICATIONS: Stroke alert, onset focal neurologic deficits slurred speech today CTDI: vol (mGy): 47.3 DLP: (mGycm): 994 Technique: Multiple CT axial sections of the brain have been obtained, 5 mm slice thickness. Contrast has not been administered. 2-D sagittal, coronal reconstructions have been obtained Low dose protocols were performed. One or more of the following dose reduction techniques were used; automated exposure control, adjustment of the mA and/or KV according to patient size, use of iterative reconstruction technique. Findings: No significant ventricular enlargement. Subtle low density in the right temporal lobe, likely artifactual but clinical correlation advised Intra-axial or extra-axial hemorrhage density is not seen. No mass effect or midline shift Basal cisterns are not remarkable. Fourth ventricle is midline. Cranial vault intact. Impression: Negative for acute hemorrhage, mass effect or midline shift Subtle low density in the right temporal lobe, which may be artifactual, clinical correlation advised Recommend brain MRI follow-up, stroke protocol
--- NOTE | 2025-04-26 09:44 | XR_ITS ---
Examination: CTA carotids with intravenous contrast CTA brain, head with intravenous contrast. 2-D sagittal, coronal reconstructions. 3-D reconstructions. Exam date and time: April 26, 2025, 1011 hours INDICATIONS: Slurred speech beginning this morning, stroke alert CTDI: vol (mGy) 47.3 DLP: (mGycm) 994 Technique: Multiple CTA axial brain, head carotid images post intravenous contrast injection 100 cc, [id number]. 2-D sagittal, coronal reconstructions. 3-D reconstructions, 3-D post processing including vascular maximum intensity projection images. Low dose protocols were performed. One or more of the following dose reduction techniques were used; automated exposure control, adjustment of the mA and/or KV according to patient size, use of iterative reconstruction technique. Findings: No significant common carotid carotid bifurcation or internal carotid artery stenoses. Dominant left vertebral artery in the neck with no critical stenoses. Intracranial vertebral arteries basilar artery and posterior cerebral branches fill with no large vessel occlusions Petrous juxtasellar supraclinoid portions internal carotid arteries fill, as well as M1 segments middle cerebral arteries middle cerebral artery trifurcation vessels and anterior cerebral arteries IMPRESSION: No significant neck arterial stenoses No cerebral large vessel arterial occlusions or thrombus
--- NOTE | 2025-04-26 09:44 | XR_ITS ---
EXAMINATION: AP chest single view TECHNIQUE: AP portable upright chest single view Date and time: April 26, 2025, 1011 hours, comparison May 04, 2023. INDICATIONS: Stroke alert, chest pain today. FINDINGS: Mild to moderate enlargement cardiac contour Moderate vascular congestion. No aspiration pneumonia or pulmonary edema IMPRESSION: Mild to moderate enlargement cardiac contour Moderate vascular congestion. No aspiration pneumonia or pulmonary edema
[2025-04-26 10:18] VITALS: PULSE 84; O2SAT 93; BMI 31.1
[2025-04-26 10:18] LABS: Lactate (Lactic Acid) 1.4 mMol/L (0.4-2.0)
--- NOTE | 2025-04-26 10:22 | PRELIM_ITS ---
CT scan of the head without intravenous contrast (axial sections with sagittal and coronal reformats) April 26, 2025 0951 hours Clinical history: Focal neuro deficit, stroke suspected. Reference is made to the prior report dated 09/07/2019 Findings: There is an ill-defined hypodense area in the base of the right temporal lobe could be artifactual versus acute infarction. There is no evidence of intracranial hemorrhage or midline shift. There are mild diffuse periventricular white matter hypodensities, compatible with chronic small vessel ischemia. There is mild to moderate volume loss. There is atheromatous calcification of the intracranial arteries. The calvarium is u nremarkable. The mastoid air cells and the visualized paranasal sinuses are clear. Impression: Ill-defined hypodense area in the base of the right temporal lobe could be artifactual versus acute infarction. Recommend further evaluation with MRI. No evidence of intracranial hemorrhage or midline shift. Periventricular chronic small vessel ischemia and volume loss. Discussion Details: Results verbally communicated to : Dr Smith at 10:13 AM 04/26/2025 Report Electronically Signed By: Janny Jauregui 04/26/2025 10:22:36 AM [EST]
--- NOTE | 2025-04-26 10:25 | PD.TNEURO ---
Tele Neuro Consultation Consultation Date 04/26/25 Consultation Narrative [facility] Tele[facility]urology Consult Services Patient Name: Deanna Painter Date of : 1955 Identification Number: Date of Service: 04/26/2025 09:39:31 Diagnosis: ? M62.81 - Generalized Muscle Weakness Impression: ? The patient has a h/o DM, HTN, HLD and presents after awakening feeling weak all over and having unsteady gait. She has slurred speech. She fell overnight when trying to ambulate. She was last normal last night prior to bedtime, around 8 p.m. DDx includes weakness due to medical issue such as infectious process or metabolic disruption, stroke. Out of thrombolytic window. Recommend medical workup, routine MRI brain w/o for clarification. ASA 81 mg + 300 mg plavix in ER, then 81 mg ASA + 75 mg plavix daily pending MRI results. Telemetry, TTE, fasting lipids. Our recommendations are outlined below. Recommendations: ? Stroke/Telemetry Floor ? Neuro Checks (Q4) ? Bedside Swallow Eval ? DVT Prophylaxis ? Euglycemia and Avoid Hyperthermia (PRN Acetaminophen) ? Bolus with Clopidogrel 300 mg bolus x1 and initiate dual antiplatelet therapy with Aspirin 81 mg daily and Clopidogrel 75 mg daily ? Antihypertensives PRN if Blood pressure is greater than 220/120 or there is a concern for End organ damage/contraindications for permissive HTN. If blood pressure is greater than 220/120 give labetalol PO or IV or Vasotec IV with a goal of 15% reduction in BP during the first 24 hours. Sign Out: ? Discussed with Emergency Department Provider Advanced Imaging: CTA Head and Neck pending, will update Metrics: Last Known Well: 04/25/2025 20:00:00 Arrival Time: 04/26/2025 09:41:00 Activation Time: 04/26/2025 09:39:31 Initial Response Time: 04/26/2025 09:42:44 ETA Time reported by hospital: 1 Minutes. Symptoms: slurred speech, unsteady gait. Initial patient interaction: 04/26/2025 09:52:41 NIHSS Assessment Completed: 04/26/2025 09:58:41 Patient is not a candidate for Thrombolytic. Thrombolytic Medical Decision: 04/26/2025 09:58:50 Patient was not deemed candidate for Thrombolytic because of following reasons: LKW outside 4.[address] Head: I personally reviewed all the CT images that were available to me and it showed: no acute process on my review, chronic microvascular changes Primary Provider Notified of Diagnostic Impression and Management Plan on: 04/26/2025 10:18:40 History of Present Illness: Patient is a 69 year old Female. Patient was brought by EMS for symptoms of slurred speech, unsteady gait. The patient has a h/o DM, HTN, HLD and presents after awakening feeling weak all over and having unsteady gait. She has slurred speech. She fell overnight when trying to ambulate. She was last normal last night prior to bedtime, around 8 p.m. She denies recent fever, chills, cough. She denies vertigo, nausea, vomiting or headache. She did not notice asymmetric weakness. Past Medical History: ? Hypertension ? Diabetes Mellitus ? Hyperlipidemia Medications: Anticoagulant use: Yes eliquis No Antiplatelet use Reviewed EMR for current medications Allergies: Reviewed Social History: Drug Use: No Family History: There is no family history of premature cerebrovascular disease pertinent to this consultation ROS : 14 Points Review of Systems was performed and was negative except mentioned in HPI. Past Surgical History: There Is No Surgical History Contributory To Today?s Visit Examination: BP(190/80), Pulse(80), Blood Glucose(233) 1A: Level of Consciousness - Alert; keenly responsive + 0 1B: Ask Month and Age - Both Questions Right + 0 1C: Blink Eyes & Squeeze Hands - Performs Both Tasks + 0 2: Test Horizontal Extraocular Movements - Normal + 0 3: Test Visual Arroyo - No Visual Loss + 0 4: Test Facial Palsy (Use Grimace if Obtunded) - Normal symmetry + 0 5A: Test Left Arm Motor Drift - No Drift for 10 Seconds + 0 5B: Test Right Arm Motor Drift - No Drift for 10 Seconds + 0 6A: Test Left Leg Motor Drift - No Drift for 5 Seconds + 0 6B: Test Right Leg Motor Drift - No Drift for 5 Seconds + 0 7: Test Limb Ataxia (FNF/Heel-Luna) - No Ataxia + 0 8: Test Sensation - Normal; No sensory loss + 0 9: Test Language/Aphasia - Normal; No aphasia + 0 10: Test Dysarthria - Mild-Moderate Dysarthria: Slurring but can be understood + 1 11: Test Extinction/Inattention - No abnormality + 0 NIHSS Score: 1 NIHSS Free Text : tremulous Pre-Morbid Modified Thee Scale: 0 Points = No symptoms at all Spoke with : Dr. Smith This consult was conducted in real time using interactive audio and video technology. Patient was informed of the technology being used for this visit and agreed to proceed. Patient located in hospital and provider located at home/office setting. Patient is being evaluated for possible acute neurologic impairment and high probability of imminent or life-threatening deterioration. I spent total of 42 minutes providing care to this patient, including time for face to face visit via telemedicine, review of medical records, imaging studies and discussion of findings with providers, the patient and/or family. Dr Bita Valiente [facility] For Inpatient follow-up with [facility] physician please call [facility] at . As we are not an outpatient service for any post hospital discharge needs please contact the hospital for assistance. If you have any questions for the [facility] physicians or need to reconsult for clinical or diagnostic changes please contact us via [facility] at . Non-radiologist review of imaging performed to assist with emergent clinical decision-making. Remote physician workstations do not possess the same resolution, calibration, or diagnostic capabilities as hospital-based radiology reading stations, and formal radiologist read is necessary. Signature : Bita Valiente
[2025-04-26 10:28] VITALS: BP 215/89; PULSE 69; RESP 20; TEMP 36.7; O2SAT 99
[2025-04-26] MEDS: RINGERS LACTATED 1000 ML 1,000 ML 500 ML IV (10:35)
[2025-04-26 10:46] LABS: Basophils # (Auto) 0.0 Thou/mm3 (0.0-0.2); Basophils % (Auto) 0 % (0-2.5); Eosinophils # (Auto) 0.2 Thou/mm3 (0.0-0.5); Eosinophils % (Auto) 2 % (0-10); Hematocrit 32.9 % (36.0-46.0); Hemoglobin 11.6 g/dL (12.0-16.0); Immature Granulocytes Auto 0.09 Thou/mm3 (0.00-0.00); Lymphocytes # (Auto) 0.9 Thou/mm3 (1.0-4.8); Lymphocytes % (Auto) 13 % (10-50); Mean Corpuscular HGB Conc 35.3 g/dl (31.0-37.0); Mean Corpuscular Hemoglobin 31.4 pg (25.0-35.0); Mean Corpuscular Volume 89 fL (80-100); Monocytes # (Auto) 0.6 Thou/mm3 (0.0-0.8); Monocytes % (Auto) 8 % (0-12); Neutrophils # (Auto) 4.9 Thou/mm3 (1.8-7.7); Neutrophils % (Auto) 74 % (37-80); Nucleated Red Blood Cell # 0.00 Thou/mm3 (0.00-0.00); Nucleated Red Blood Cell % 0 /100 WBC (0); Platelet Count 116 Thou/mm3 (140-440); RDW Standard Deviation 45.1 fL (36.4-46.3); Red Blood Count 3.69 Miln/mm3 (4.00-5.20); White Blood Count 6.5 Thou/mm3 (3.6-11.0)
[2025-04-26 10:55] LABS: INR 1.1 (0.9-1.3); Partial Thromboplastin Time 21.1 Seconds (22.0-36.0); Prothrombin Time 11.3 Seconds (9.0-12.2)
[2025-04-26 10:56] LABS: Alanine Aminotransferase < 7 U/L (10-49); Albumin, Serum 3.5 gm/dL (3.4-4.8); Albumin/Globulin Ratio 1.8 (1.2-2.2); Alcohol, Blood Medical < 3.0 mg/dL (0-10.0); Alkaline Phosphatase 103 U/L (46-116); Anion Gap 9 (7-16); Aspartate Amino Transferase 23 U/L (0-34); BUN/Creatinine Ratio 7 Ratio (12-20); Bilirubin,Direct 0.2 mg/dL (0.0-0.3); Bilirubin,Total 0.6 mg/dL (0.3-1.2); Blood Urea Nitrogen 22 mg/dL (9-23); C-Reactive Protein < 0.5 mg/dL (0.0-0.9); Calcium 8.8 mg/dL (8.3-10.6); Calcium (Corrected) 9.2 mg/dL (8.5-10.1); Carbon Dioxide 21.6 mMol/L (20.0-31.0); Chloride 112 mMol/L (98-107); Creatinine (Component) 3.0 mg/dL (0.6-1.3); Estimated Creatinine Clearance 16.8 mL/min (>60); Globulin 2.0 gm/dL (2.3-3.5); Glucose 230 mg/dL (74-106); Magnesium 1.7 mg/dL (1.6-2.6); Osmolality,Calculated 295 (275-295); Potassium 3.6 mMol/L (3.4-5.1); Procalcitonin 0.14 ng/ml (0.0-0.49); Sodium 143 mMol/L (136-145); Thyroid Stimulating Hormone 2.50 uIU/mL (0.55-4.78); Total Protein 5.5 gm/dL (5.7-8.2); Troponin I < 0.020 ng/mL (0.0-0.045); eGFR 16 See Note
[2025-04-26 10:59] LABS: Sed Rate (ESR) 5 mm/hr (0-30)
[2025-04-26 11:14] LABS: Glucose Estimated Average 206 mg/dL (80-131); Hemoglobin A1C 8.8 % Hgb (4.8-6.0)
[2025-04-26 12:23] LABS: B-Type Natriuretic Peptide 122 pg/mL (0-100)
--- NOTE | 2025-04-26 12:51 | ESHP_ITS ---
<Statement entered by Deven Herman MD - 04/26/25 13:30> 69-year-old female with a past medical history of insulin-dependent type 2 diabetes mellitus, hypertension, hyperlipidemia, hypothyroidism, CKD who presents for presyncopal episode. Son present at bedside who provided additional history. Patient walked to the bathroom in the morning and felt weak but after trying to get up from the toilet she felt lightheaded, dizzy, and had an episode of nonbloody emesis and was brought to the ED. In the ED, patient endorses occipital headache but no blurry vision or epistaxis. Son endorses that patient's speech is not at her baseline and patient herself has some difficulty with word finding. Of note, son states that patient's functional status has declined over the last year and has had about 4-6 falls over this time span. Patient has also been having decreased p.o. intake, which son states that she only has small meals and gets full quickly. She also endorses a bright red bowel movement. Initial vitals showed BP 215/89 but she is on room air and afebrile. CBC unremarkable. CHEM panel showing creatinine of 3.0 (appears baseline), glucose of 230, A1c of 8.8%. CT head shows subtle low-density in right temporal lobe but may be artifact. CTA head/neck unremarkable. CXR negative. EKG showing sinus rhythm. Evaluated by teleneuro and recommending further medical workup. Given aspirin 81 mg and Plavix 300 mg in ED and 81/75 mg going forward. Admitted for stroke workup, in-house neurology consulted and will follow-up MRI. Nephrology also consulted given CKD as well as GI for possible GI bleed. ----- Note reviewed and agree with care plan as documented. Please refer to the note below for further details. Plan discussed with attending physician Dr. Kristy Herman MD PGY-2 Internal Medicine Documentation for date of: 04/26/25 HPI History of Present Illness Chief complaint: Stroke R/O History of present illness: Patient is a 69 year old female with past medical history of HTN, HLD, Insulin- dependent diabetes, hypothyroidism, gastroparesis, dementia, nutritional deficiencywho presents to the ED after having stroke like symptoms. Patient's son was present and helped with history of patient. Patient this morning was reported to be stumbling while walking to the bathroom, she couldn't find her walker, sat down and called for her son. Patient threw up clear/white billious vomit x1 and was being held up by her son during this time, as she became diffusely weak and was slumping over with slurred speech as well. At this point the son called EMS and was transferred to the ED. Patient's son states she had an episode of stumbling and slumping over earlier in March. Patient endorsed having occipital headache, having blood in diarrhea yesterday. Patient denies fever, chills, weight loss, chest pain, shortness of breath. Patient sees Dr. Sparks (nephrology), Dr. Avelar (Cardiology - [place]), [facility] (Neurology), Spine and Opthalmologist. Past Medical History: above Family History: Mother had stroke Surgical History: appendectomy, bilateral cataract surgery, cholecystectomy, hysterectomy, L/R knee surgery, thyroid surgery Social History: Lives with son; Has not smoked cigarretes since young (~3pk years); no alcohol or recreational drug use Current Medications: Confirmed meds with son (see chart) Allergies: No known drug allergies ED Course: -Initial vitals were BP 215/89, HR 65, RR 20, temp 98.1 F, 99% O2 on room air -Labs significant for hgb 11.6, hct 32.9, platlets 116, aptt 21.1, chloride 112, creatinine 3.0, egfr 16, glucose 230, A1c 8.8, BNP 122 -Imaging included CXR: Mild to moderate enlargement cardiac contour; Moderate vascular congestion. Head CT: Negative for acute hemorrhage, mass effect or midline shift; Subtle low density in the right temporal lobe, which may be artifactual Head/Neck CTA: No significant neck arterial stenoses; No cerebral large vessel arterial occlusions or thrombus EKG: sinus rhythm -In the ED, patient was given labetalol 10 mg iv x2, 500 ml LR x1 -Patient was admitted for stroke workup Review of Systems Review of systems otherwise negative except what is mentioned above. Exam Vital Signs Temp Pulse Resp BP Pulse Ox O2 Del Method 98.1 F 69 20 215/89 H 99 Room Air 04/26/25 10:28 04/26/25 10:28 04/26/25 10:04/26/25 10:28 04/26/25 10:28 04/26/25 10:28 Narrative Exam General: No acute distress, resting in ED bed Skin: Occasional bruises on upper extremities; no apparent rash, skin breaks HENT: NCAT, EOMI/PERRL, not icteric. External ears normal. No rhinorrhea. Moist mucous membranes Cardiovascular: Regular rate and rhythm, no murmur, +S1/S2. Respiratory: Lungs CTAB GI: Soft, nontender, non-distended. No guarding or rebound tenderness. : No suprapubic tenderness. No flank tenderness bilaterally. Extremities: no edema, no cyanosis, no clubbing. 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 Psychiatric: Cooperative, appropriate affect. Results: Labs 04/27/25 05:04 04/26/25 10:03 Labs: Short CBC 04/26/25 Range/Units 10:03 WBC 6.5 (3.6-11.0) Thou/mm3 Hgb 11.6 L (12.0-16.0) g/dL Hct 32.9 L (36.0-46.0) % Plt Count 116 L (140-440) Thou/mm3 BMP 04/26/25 10:03 Sodium 143 Potassium 3.6 Chloride 112 H Carbon Dioxide 21.6 BUN 22 Creatinine 3.0 H Glucose 230 H Calcium 8.8 Cardiac Enzymes 04/26/25 Range/Units 10:03 Troponin I < 0.020 (0.0-0.045) ng/mL Liver Function 04/26/25 Range/Units 10:03 Total Bilirubin 0.6 (0.3-1.2) mg/dL Direct Bilirubin 0.2 (0.0-0.3) mg/dL AST 23 (0-34) U/L ALT < 7 L (10-49) U/L Alkaline Phosphatase 103 (46-116) U/L Albumin 3.5 (3.4-4.8) gm/dL Quality Measures Quality Measures VTE prophylaxis Advance care planning discussed with:: patient and child Medications Home Medications and Allergies Home Medications ?Medication ?Instructions ?Recorded ?Confirmed ?Type calcitriol 0.25 mcg capsule 0.25 mcg PO DAILY 04/29/22 04/26/25 History insulin glargine U-300 conc 300 20 unit subcut DAILY 1 06/30/21 04/26/25 History unit/mL (3 mL) subcutaneous pen (Toujeo Max U-300 SoloStar) meclizine 25 mg tablet 25 mg PO TID PRN Dizziness 1 06/30/21 04/26/25 History montelukast 10 mg tablet 10 mg PO DAILY 04/29/2204/08 History pregabalin 150 mg capsule 150 mg PO BID 04/29/2204/26 History rosuvastatin 40 mg tablet 25 mg PO DAILY 04/29/2204/08 History valsartan 160 mg tablet 160 mg PO EVERYOTHERDAY 04/0804/26/25 History albuterol sulfate 90 mcg/actuation 2 puff inhalation Q DAY 04/26/25 04/26/25 History aerosol inhaler amlodipine 2.5 mg tablet 2.5 mg PO QDAY 04/26/2504/08 History clopidogrel 75 mg tablet 75 mg PO QDAY 04/26/2504/26 History donepezil 5 mg tablet 5 mg PO QDAY 04/26/25 History fluticasone 500 mcg-salmeterol 50 1 inh inhalation BID 04/26/25 04/26/25 History mcg/dose blistr powdr for inhalation (Wixela Inhub) hydrocodone 10 mg-acetaminophen 1 tab PO Q6HR 04/26/25 04/26/25 History 325 mg tablet levothyroxine 100 mcg tablet 100 mcg PO QDAY 04/26/25 04/26/25 History tirzepatide 10 mg/0.5 mL 10 mg subcut QWEEK 04/26/25 04/26/25 History subcutaneous pen injector (Michelero) zinc sulfate 50 mg zinc (220 mg) 50 mg PO DAILY 04/26/25 History capsule Allergies Allergy/AdvReac Type Severity Reaction Status Date / Time moxifloxacin (From Avelox) Allergy ITCHING Verified 04/26/25 10:25 Visit Medications Ondansetron HCl (Ondansetron Inj 2 Mg/Ml Inj 2 Ml) 4 mg IVP Q4HR PRN PRN Reason: NAUSEA OR VOMITING Stop: 05/26/25 09:43 Discontinued Medications Lactated Ringer's (Lactated Ringers) 1,000 mls @ 500 mls/hr IV .Q2H ONE Stop: 04/26/25 11:44 Last Admin: 04/26/25 10:35 Dose: 500 mls/hr Labetalol HCl (Labetalol Inj 5 Mg/Ml Vial 4 Ml) 10 mg IVP Q15M PRN PRN Reason: hypertension Last Admin: 04/26/25 11:43 Dose: 10 mg Assessment & Plan Plan Patient is a 69 year old female with past medical history of HTN, HLD, Insulin- dependent diabetes, hypothyroidism, gastroparesis, dementia, nutritional deficiency who presents to the ED after having stroke like symptoms. Admitted for stroke workup; tele-neuro consulted - NIHSS 1; CT imaging shows subtle low density in the right temporal lobe; pending MRI head. #stroke r/o #HTN emergency #HLD Unsure etiology, tia vs ischemic on differential. Hemorrhagic ruled out with head CT. Other differentials, less likely, include infectious vs metabolic. Patient afebrile, wbc wnl, however did vomit yesterday Patient found to have ataxia and dysarthria which resolved. Last well known 04/[address]: Negative for acute hemorrhage, mass effect or midline shift; Subtle low density in the right temporal lobe, which may be artifactual Head/Neck CTA: No significant neck arterial stenoses; No cerebral large vessel arterial occlusions or thrombus BP on admission 215/89, permissive htn. home med of amlodipine 2.5 mg po qd. Also takes rosuvastatin 25 mg po qd and plavix 75 mg po qd. EKG: sinus rhythm Given labetalol 10 mg iv x2 -aspirin 81 mg scheduled -plavix 75 mg scheduled -ordered patient's home med amlodipine 2.5 mg -ordered lipid panel -MRI head ordered, will follow up results -neuro checks q4 -bedside swallow eval - passed -DVT prophylaxis heparin scheduled -Tylenol prn (hyperthermia avoidance) -labetalol prn for bp > 220/120 -permissive htn for first 24 horus -In-house Neuro consulted -Tele Neuro consulted -Physical therapy referred -Speech therapy referred #c/f GI blood loss may be due to cancer, ulcers, hemmorroids. Denies nsaid use so ulceration less likely, other medication may be contributing. Need further evaluation. patient noted to have had diarrhea with blood yesterday hgb 11.6; no s/s bleeding currently -GI consulted, appreciate recs -will monitor for s/s bleeding -protonix 40 mg iv bid -iron panel ordered -npo #TATY on CKD May be due to progressing CKD vs TATY on CKD due to pre-renal gi losses vs poor po intake Patient endorses recent diarrhea Cr was 3.1 in 01/2025, 1.7 in 05/2024; 3.[address] Sparks outpatient Given 500 ml LR bolus x1 -nephrology consulted -no nephrotoxic medications -renally dose -will follow up #dementia Patient has history of alzheimer's dementia, takes donepezil 5 mg po qday at home -restarted home donepezil #COPD Takes Wixela 1 puff daily, singulair (montelukast) albuterol 2 puffs daily -started patient on advair -ordered singulair 10 mg po qd -restarted albuterol #nutritional deficiencies Patient takes zinc, vit d3, multi-vitamins, hair/skin nail gummies daily patient has hair loss pattern, may be due to nutritional deficiency -ordered patient b vitamins complex and zinc x1 -ordered b12, folate #hypothyroidism Patient takes levothyroxine 100 mcg qd History of thyroid surgery -ordered home levothyroxine 100 mcg po acbr #Insulin-dependent diabetes #gastroparesis Patient takes Toujeo max 20 units daily, Mounjaro 10 mg weekly A1c of 8.8; glucose on admission 230 -holding mounjaro, should not be taking w/ hx of gastroparesis -will monitor sugars -insulin sliding scale in place -hypoglycemic protocol in place -glucose q6hr checks #anemia, normocytic hgb 11.6 on admission; anemia of chronic disease patient noted to have had diarrhea with blood yesterday -will continue to monitor for s/s of bleeding -monitor hgb #thrombocytopenia per chart review, appears chronic; unsure etiology may be due to nutritional deficiency 116 on admission no acute intervention at the moment -will continue to monitor platelets Hospital Management: Disposition: Tele Diet: NPO, pending speech eval GI Prophylaxis: protonix Bowel Prophylaxis: none DVT Prophylaxis: heparin CODE STATUS: limited code (DNI, CPR okay) Patient plan of care was discussed with the attending physician, Dr. Wagner & senior resident Dr. Batsheva Amezcua MD PGY-1 Attending Provider Attestation/Addendum I have examined the patient, reviewed labs and imaging findings, discussed the case with the resident(s), and reviewed entered orders. I agree with the plan of care as outlined in this note, with these additional summaries/recommendations: After examination of the patient and review of the clinical data, I feel that this patient needs admission to the hospital for further treatment and evaluation. Dr. Kristy MD
--- NOTE | 2025-04-26 13:24 | PC.CC ---
Patient is a 69 year-old female who presents to the hospital for stroke symptoms. STRAWHAT INSPECTOR AND PACKERSamantha made [id number] contact with patient introduced self, role, and reason for visit. Patient appeared alert and oriented to self, location, and situation. STRAWHAT INSPECTOR AND PACKER, discussed limits of confidentiality. At bedside was patient's son, Eric Painter and patient provided verbal consent for son to remain in the room during assessment. Patient made appropriate eye contact and engaged in initial assessment. ? Patient confirmed information on demographics and reports to living with her son Eric Painter. Per patient, her son Eric is her medical decision maker in the event she is unable to make her own medical decisions. At home patient is able to ambulate independently but sometimes requires a walker or wheelchair. Patient is able to complete her own ADLs with minimum assistance. Patient has a kidney provider Dr. Harrell but patient does not receive dialysis. Patient does not requires oxygen. Her primary provider is Kuldeep Abrams and uses [facility] for prescription needs. Upon discharge patient plans to return back home. family services manager to follow up with any discharge needs.
[2025-04-26 13:53] LABS: Free T4 (Free Thyroxine) 1.07 ng/dL (0.89-1.76)
[2025-04-26] MEDS: INSULIN LISPRO (AdmeLOG) 1 UNIT/0.01 ML UNIT SC (15:31)
--- NOTE | 2025-04-26 15:39 | PC.NURSE ---
WHEN GOING TO GIVE PT NORCO, SHE SAID HE CANNOT TAKE IT BECAUSE HER DOCTOR TOLD HER NOT TO BECAUSE OF HER KIDNEYS. THIS RN WASTED IT WITH FELLOW RN PURA
--- NOTE | 2025-04-26 16:58 | PC.NURSE ---
SPOKE W/MD MENCHACA AT THIS TIME, PT NEEDS MEDICATION FOR ANXIETY FOR MRI, HE WILL PUT SOMETHING IN, MRI UPDATED AND WILL COME GET PT IN 25 MINS
[2025-04-26] MEDS: LORazepam 2 MG/ML VIAL IVP (17:08)
[2025-04-26 17:40] LABS: Iron 62 mcg/dL (50-170); Percent Iron Saturation 24 % (20-55); Total Iron Binding Capacity 252 mcg/dL (250-425); Unsaturated Iron Binding 190 (225-295)
[2025-04-26 18:33] VITALS: BP 168/84; PULSE 56; RESP 17; O2SAT 97
[2025-04-26] MEDS: VITAMIN B COMPLEX TABLET 1 TAB PO (19:01)
[2025-04-26] MEDS: ZINC SULFATE 220 MG CAPSULE PO (19:01)
[2025-04-26] MEDS: FLUTICASONE/SALMETEROL 100/50 14 DOSE INH 1 PUFF INH (19:51)
[2025-04-26 19:52] VITALS: PULSE 56; RESP 20; O2SAT 98
--- NOTE | 2025-04-26 20:21 | PC.NURSE ---
pt asleep. arouses easily. family at bedside.
--- NOTE | 2025-04-26 21:03 | PD.IMCONS ---
[facility] Data of Consult Requesting Physician: Julián Wagner MD Primary Care Provider: Kuldeep Abrams MD Consult Narrative Reason for consult: Anemia hemoglobin 11.1 and hematocrit 32.6 platelet count 116,000 History of present illness: 69 years old female comes in for evaluation for altered mental status CT head and neck was negative neurology was consulted and patient was out of the thrombolytic window no evidence of any stroke although patient has underlying dementia taking donpezil She has history of diabetes mellitus hypertension hyperlipidemia chronic kidney disease baseline creatinine 3.0 and of course dementia She had episodes of diarrhea with blood in the stool I have been consulted Pro time INR is 1.1 cc:: cc: Julián Wagner MD Review of Systems Review of Systems ROS Unobtainable: unobtainable due to medical condition Past Medical History Surgical History OTHER SURGICAL HX: In addition to as in the HPI patient also has hypothyroidism Chronic pain syndrome on hydrocodone And also on clopidogrel Meds Home Medications and Allergies Home Medications ?Medication ?Instructions ?Recorded ?Confirmed ?Type calcitriol 0.25 mcg capsule 0.25 mcg PO DAILY 04/29/22 04/26/25 History insulin aspart U-100 100 unit/mL 1 sliding scale dose subcut 04/29/22 04/29/22 History (3 mL) subcutaneous pen (Novolog USEASDIRECTD FlexPen U-100 Insulin aspart) insulin glargine U-300 conc 300 20 unit subcut DAILY 04/29/22 04/26/25 History unit/mL (3 mL) subcutaneous pen (Toujeo Max U-300 SoloStar) levothyroxine 112 mcg tablet 112 mcg PO DAILY 04/29/22 04/29/22 History meclizine 25 mg tablet 25 mg PO TID PRN Dizziness 04/29/22 04/26/25 History montelukast 10 mg tablet 10 mg PO DAILY 04/29/22 04/26/25 History pregabalin 150 mg capsule 150 mg PO BID 04/29/22 04/29/22 History rosuvastatin 40 mg tablet 25 mg PO DAILY 04/29/22 04/26/25 History valsartan 160 mg tablet 160 mg PO EVERYOTHERDAY 04/29/22 04/26/25 History albuterol sulfate 90 mcg/actuation 2 puff inhalation QDAY 04/26/25 04/26/25 History aerosol inhaler amlodipine 2.5 mg tablet 2.5 mg PO QDAY 04/26/25 04/26/25 History clopidogrel 75 mg tablet 75 mg PO QDAY 04/26/25 04/26/25 History donepezil 5 mg tablet 5 mg PO QDAY 04/26/25 04/26/25 History fluticasone 500 mcg-salmeterol 50 inhalation 04/26/25 History mcg/dose blistr powdr for inhalation (Jaeela Inhub) hydrocodone 10 mg-acetaminophen 1 tab PO Q6HR 04/26/25 04/26/25 History 325 mg tablet levothyroxine 100 mcg tablet 100 mcg PO QDAY 04/26/25 04/26/25 History tirzepatide 10 mg/0.5 mL 10 mg subcut QWEEK 04/26/25 04/26/25 History subcutaneous pen injector (Sary) zinc sulfate 50 mg zinc (220 mg) mg 04/26/25 History capsule Allergies Allergy/AdvReac Type Severity Reaction Status Date / Time moxifloxacin (From Avelox) Allergy ITCHING Verified 04/26/25 10:25 Exam Vital Signs Temp Pulse Resp BP Pulse Ox O2 Del Method 98.1 F 56 L 20 168/84 H 98 Room Air 04/26/25 10:28 04/26/25 19:52 04/26/25 19:52 04/26/25 18:33 04/26/25 19:52 04/26/25 18:33 Routine Respiratory Exam Comments: Normal to auscultation Routine Abdominal Exam Comments: Soft nontender Results Labs 04/26/25 10:03 04/26/25 10:03 Labs: Short CBC 04/26/25 Range/Units 10:03 WBC 6.5 (3.6-11.0) Thou/mm3 Hgb 11.6 L (12.0-16.0) g/dL Hct 32.9 L (36.0-46.0) % Plt Count 116 L (140-440) Thou/mm3 BMP 04/26/25 10:03 Sodium 143 Potassium 3.6 Chloride 112 H Carbon Dioxide 21.6 BUN 22 Creatinine 3.0 H Glucose 230 H Calcium 8.8 Cardiac Enzymes 04/26/25 Range/Units 10:03 Troponin I < 0.020 (0.0-0.045) ng/mL Liver Function 04/26/25 Range/Units 10:03 Total Bilirubin 0.6 (0.3-1.2) mg/dL Direct Bilirubin 0.2 (0.0-0.3) mg/dL AST 23 (0-34) U/L ALT < 7 L (10-49) U/L Alkaline Phosphatase 103 (46-116) U/L Albumin 3.5 (3.4-4.8) gm/dL Assessment and Plan Additional Assessment & Plan Additional Plan: # Anemia multifactorial Other medical problems include IDDM Essential hypertension Hyperlipidemia CKD stage III Hypothyroidism Dementia Plan N.p.o. midnight tonight except p.o. meds Consent for fiberoptic esophagogastroduodenoscopy biopsy therapeutic intervention under intravenous moderate sedation scheduled for tomorrow afternoon Will follow the patient patient son was in the room 373 and got the permission from him for the procedure initially endoscopy if that is negative we will consider a colonoscopy prior to discharge Thank you for the opportunity to participate in care of this patient
--- NOTE | 2025-04-26 21:34 | PC.NURSE ---
report called to Arminda JONES and pt taken to r [id number]
[2025-04-26 21:37] LABS: Collection Type, Urine Clean Catch
[2025-04-26 21:45] LABS: Bacteria,Urine Rare; Bilirubin,Urine Negative (Negative); Blood,Urine 1+ (Negative); Clarity,Urine Clear (Clear/Hazy); Color,Urine Lt-Yellow (Lt Yel-Yel); Culture Indicated,Urine Not Indicated; Glucose, Urine 3+ (Negative); Ketones,Urine Negative (Negative); Leukocyte Esterase,Urine Negative (Negative); Nitrite,Urine Negative (Negative); PH,Urine 6.5 (5.0-7.0); Protein,Urine 3+ (Neg - Trace); RBC,Urine 13 /hpf (0-3); Specific Gravity,Urine 1.046 (1.001-1.035); Squamous Epithelial Cell,Urine 4 /hpf (0-5); Urobilinogen,Urine Negative mg/dL (0.0-1.0); WBC,Urine 5 /hpf (0-5)
[2025-04-26 21:50] LABS: Amphetamine/Methamp Scrn,U Negative (Negative); Barbiturate Screen,Urine Negative (Negative); Benzodiazepines Screen,Urine Negative (Negative); Benzoylecgonine Screen, Ur Negative (Negative); Fentanyl Screen,Urine Negative (Negative); Opiate Screen,Urine Negative (Negative); THC Screen,Urine Negative (Negative)
[2025-04-26 21:58] VITALS: BMI 31.3
[2025-04-26 22:00] VITALS: BP 176/76; PULSE 71; RESP 15; TEMP 36; O2SAT 93
--- NOTE | 2025-04-26 23:30 | PD.VCONSULT1 ---
Telemedicine visit statement This visit was conducted with the use of phone obtained on 04/26/25 at 2330. Meds Home Medications and Allergies Home Medications ?Medication ?Instructions ?Recorded ?Confirmed ?Type calcitriol 0.25 mcg capsule 0.25 mcg PO DAILY 04/29/22 04/26/25 History insulin glargine U-300 conc 300 20 unit subcut DAILY 04/29/22 04/26/25 History unit/mL (3 mL) subcutaneous pen (Toujeo Max U-300 SoloStar) meclizine 25 mg tablet 25 mg PO TID PRN Dizziness 04/29/22 04/26/25 History montelukast 10 mg tablet 10 mg PO DAILY 04/29/22 04/26/25 History pregabalin 150 mg capsule 150 mg PO BID 04/29/22 04/26/25 History rosuvastatin 40 mg tablet 25 mg PO DAILY 04/29/22 04/26/25 History valsartan 160 mg tablet 160 mg PO EVERYOTHERDAY 04/29/22 04/26/25 History albuterol sulfate 90 mcg/actuation 2 puff inhalation QDAY 04/26/25 04/26/25 History aerosol inhaler amlodipine 2.5 mg tablet 2.5 mg PO QDAY 04/26/25 04/26/25 History clopidogrel 75 mg tablet 75 mg PO QDAY 04/26/25 04/26/25 History donepezil 5 mg tablet 5 mg PO QDAY 04/26/25 04/26/25 History fluticasone 500 mcg-salmeterol 50 1 inh inhalation BID 04/26/25 04/26/25 History mcg/dose blistr powdr for inhalation (Wixela Inhub) hydrocodone 10 mg-acetaminophen 1 tab PO Q6HR 04/26/25 04/26/25 History 325 mg tablet levothyroxine 100 mcg tablet 100 mcg PO QDAY 04/26/25 04/26/25 History tirzepatide 10 mg/0.5 mL 10 mg subcut QWEEK 04/26/25 04/26/25 History subcutaneous pen injector (Mounjaro) zinc sulfate 50 mg zinc (220 mg) 50 mg PO DAILY 04/26/25 04/26/25 History capsule Allergies Allergy/AdvReac Type Severity Reaction Status Date / Time moxifloxacin (From Avelox) Allergy ITCHING Verified 04/26/25 10:25 Virtual exam Vital Signs Temp Pulse Resp BP Pulse Ox O2 Del Method 98.1 F 56 L 20 168/84 H 98 Room Air 04/26/25 10:28 04/26/25 19:52 04/26/25 19:52 04/26/25 18:33 04/26/25 19:52 04/26/25 18:33 Results Labs 04/26/25 10:03 04/26/25 10:03 Labs: Short CBC 04/26/25 Range/Units 10:03 WBC 6.5 (3.6-11.0) Thou/mm3 Hgb 11.6 L (12.0-16.0) g/dL Hct 32.9 L (36.0-46.0) % Plt Count 116 L (140-440) Thou/mm3 BMP 04/26/25 10:03 Sodium 143 Potassium 3.6 Chloride 112 H Carbon Dioxide 21.6 BUN 22 Creatinine 3.0 H Glucose 230 H Calcium 8.8 Cardiac Enzymes 04/26/25 Range/Units 10:03 Troponin I < 0.020 (0.0-0.045) ng/mL Liver Function 04/26/25 Range/Units 10:03 Total Bilirubin 0.6 (0.3-1.2) mg/dL Direct Bilirubin 0.2 (0.0-0.3) mg/dL AST 23 (0-34) U/L ALT < 7 L (10-49) U/L Alkaline Phosphatase 103 (46-116) U/L Albumin 3.5 (3.4-4.8) gm/dL Urine 04/26/25 Range/Units 20:55 Urine Color Lt-Yellow (Lt Yel-Yel) Urine Clarity Clear (Clear/Hazy) Urine pH 6.5 (5.0-7.0) Ur Specific Mckenzie 1.046 H (1.001-1.035) Urine Protein 3+ A (Neg - Trace) Urine Glucose (UA) 3+ A (Negative)
[2025-04-27] VITALS (17 sets, daily range): BP systolic 101–193; BP diastolic 53–107; PULSE 55–89; RESP 14–98; TEMP 36.1–36.4; O2SAT 94–100; BMI 11.0
--- NOTE | 2025-04-27 02:27 | PC.NURSE ---
Pt is NPO, okay to give PO meds with a sip of water per Dr. Isidro.
[2025-04-27] MEDS: LEVOTHYROXINE SODIUM 100 MCG TABLET PO (05:21)
[2025-04-27 06:07] LABS: Basophils # (Auto) 0.0 Thou/mm3 (0.0-0.2); Basophils % (Auto) 1 % (0-2.5); Eosinophils # (Auto) 0.2 Thou/mm3 (0.0-0.5); Eosinophils % (Auto) 4 % (0-10); Hematocrit 31.2 % (36.0-46.0); Hemoglobin 10.6 g/dL (12.0-16.0); Immature Granulocytes Auto 0.05 Thou/mm3 (0.00-0.00); Lymphocytes # (Auto) 1.2 Thou/mm3 (1.0-4.8); Lymphocytes % (Auto) 24 % (10-50); Mean Corpuscular HGB Conc 34.0 g/dl (31.0-37.0); Mean Corpuscular Hemoglobin 30.6 pg (25.0-35.0); Mean Corpuscular Volume 90 fL (80-100); Monocytes # (Auto) 0.5 Thou/mm3 (0.0-0.8); Monocytes % (Auto) 10 % (0-12); Neutrophils # (Auto) 3.1 Thou/mm3 (1.8-7.7); Neutrophils % (Auto) 60 % (37-80); Nucleated Red Blood Cell # 0.00 Thou/mm3 (0.00-0.00); Nucleated Red Blood Cell % 0 /100 WBC (0); Platelet Count 106 Thou/mm3 (140-440); RDW Standard Deviation 46.1 fL (36.4-46.3); Red Blood Count 3.46 Miln/mm3 (4.00-5.20); White Blood Count 5.2 Thou/mm3 (3.6-11.0)
--- NOTE | 2025-04-27 07:37 | PCS.ST ---
Pt NPO for procedure later this afternoon. [facility] will evaluate pt tomorrow morning.
[2025-04-27] MEDS: ASPIRIN EC 81 MG TABEC PO (08:09)
[2025-04-27] MEDS: DONEPEZIL HCL 5 MG TABLET PO (08:10)
[2025-04-27] MEDS: MONTELUKAST SODIUM 10 MG TABLET PO (08:10)
[2025-04-27] MEDS: CLOPIDOGREL BISULFATE 75 MG TABLET PO (08:10)
--- NOTE | 2025-04-27 10:05 | XR_ITS ---
Examination: Retroperitoneal ultrasound, complete Technique: Multiple high resolution grayscale images of the retroperitoneum obtained, including kidneys and bladder. Exam date and time: April 27, 2025, 11:50 a.m. INDICATIONS: Acute renal insufficiency on laboratory examination today. FINDINGS: Right kidney 9.1 cm renal cortex 1.6 cm Left kidney 8.6 cm renal cortex 1.3 cm Severe renal scarring No hydronephrosis No bladder mass or bladder calculi, bladder prevoid volume 230 cc IMPRESSION: Small kidneys with bilateral renal cortical thinning Severe bilateral renal parenchymal scar formation
--- NOTE | 2025-04-27 10:07 | PD.TNEUROPRO ---
Tele Neuro Progress Note Progress Note Date 04/27/25 Most Recent Vital Signs Last Vital Signs Temp 97.2 F 04/27/25 08:00 Pulse 69 04/27/25 08:09 Resp 14 04/27/25 08:00 BP 140/71 H 04/27/25 08:09 Pulse Ox 96 04/27/25 08:00 O2 Del Method Room Air 04/27/25 08:00 Laboratory-Coagulation Panel PT 11.3 Seconds (9.0-12.2) 04/26/25 10:03 INR 1.1 (0.9-1.3) 04/26/25 10:03 APTT 21.1 Seconds (22.0-36.0) L 04/26/25 10:03 Progress Note Narrative [facility] TeleNeurology Consult Services Routine Consult Follow-Up Patient Name:???Deanna Painter Date of :???1955 Identification Number:??? Date of Service:???04/27/2025 09:38:30 Diagnosis?R05.4 - Cough syncope ?R55 - Syncope (blackout, fainting, vasovagal attack) Impression Toxic Metabolic Encephalopathy Probable pre-syncopal episode Hypertensive emergency Functional decline in the past year - Multiple falls and loss p.o. intake Reported nausea vomiting and bloody stools MRI of the brain with no acute findings MRA with no cerebral large vessel occlusions CT angio head and neck with no significant arterial stenosis or large vessel occlusion Recommendations: Appreciate assistance with cardio medical workup with primary team Neurology will sign off Patient is established with neurology for tremors can follow up for chronic gait instability and functional decline Subjective Patient with no acute complaints. She is feeling back to baseline. Hospital Course Per chart review: The patient has a h/o DM, HTN, HLD and presenting for generalized weakness in the setting of getting up from the toilet noted to feel lightheaded and dizzy with an episode of vomiting. Patient's son noted that it did not appear that she was at baseline and having trouble finding her words. Reportedly from her son the patient has had a decrease in her function in the last year with multiple falls, less p.o. intake and bloody stools. Patient initially arrived with hypertensive emergency. Did have elevated creatinine but was noted to baseline. Glucose was elevated at 230 with an A1c of 8.8. I did personally speak with the patient's son who is at bedside. He states he does not feel that the patient is back to her baseline. He states that he had to help her off the toilet as she was having vomiting appear to be white bile. The patient initially was able to walk but then became limp all over and was unable to hold her weight. The patient was slurring her words. When the paramedics arrived they asked her to smile and she was only giving a twitching smile which she is still currently doing which is unusual. The paramedics asked her to repeat phrases and she stated why what I do that . He still feels that the patient is generally weak and slower to respond. He feels that she is smiling unusually but not clearly focal facial droop does not participating with full smile. ? ? Examination Neuro Exam: General:?Alert,Awake, Oriented to Time, Place, Person Speech:?Fluent: Language:?Intact: Face:?Symmetric: Does give a faint grimace somewhat trembling no clear droop Facial Sensation:?Intact: Visual Arroyo:?Intact: Extraocular Movements:?Intact: Motor Exam:?No Drift: Sensation:?Intact: Coordination:?Intact: Kinetic tremor ? This consult was conducted in real time using interactive audio and video technology. Patient was informed of the technology being used for this visit and agreed to proceed. Patient located in hospital and provider located at home/office setting. Telehealth Neurology consultation was provided. I spent minutes providing telehealth care. This includes time spent for face to face visit via telemedicine, review of medical records, imaging studies and discussion of findings with providers, the patient and/or family. Dr Nelly Love [facility] For Inpatient follow-up with [facility] physician please call [facility] at . As we are not an outpatient service for any post hospital discharge needs please contact the hospital for assistance. If you have any questions for the [facility] physicians or need to reconsult for clinical or diagnostic changes please contact us via [facility] at Signature :?Nelly Love
--- NOTE | 2025-04-27 10:56 | ECHO_ITS ---
Patient Info Name: Deanna Painter Age: 69 years : 1955 Gender: Female Ht: 157 cm Wt: 78 kg BSA: 1.87 m2 BP: 156 / 72 mmHg HR: 59 bpm Exam Date: 04/28/2025 8:15 AM Admit Date: 04/26/2025 Site: [facility] Room Number: [id number] Patient Status: I Exam Type: CA echo doppler complete Credit Assistant: Aishwarya Tran Ordering Physician: Bi North Study Info Indications Stroke R/O - Contrast/Agitated Saline Contrast/Ag. Saline: Agitated Saline Amount: --- ml IV Access Condition: evidence of infiltration Primary Location: [id number] Left Ventricular Outflow Tract Name Value Normal LVOT 2D LVOT Diameter 1.9 cm LVOT Doppler LVOT Peak Velocity 130 cm/s LVOT Mean Gradient 3 mmHg LVOT VTI 27 cm LVOT VTI/AV VTI Ratio 0.8 LVOT Stroke Volume 77 ml Pulmonic Valve Name Value Normal PV Doppler PV Peak Velocity 76 cm/s Mitral Valve Name Value Normal MV Doppler MV Mean Gradient 2 mmHg MV Decel [place] 347 cm/s2 MV PHT 74 ms MV Area (PHT) 3.0 cm2 4.0-5.0 MV Area (Cont Eq VTI) 1.5 cm2 MV Diastolic Function MV E Peak Velocity 88 cm/s MV A Peak Velocity 116 cm/s MV E/A 0.8 MV Annular TDI MV Septal e' Velocity 3.1 cm/s MV E/e' (Septal) 28.8 MV Lateral e' Velocity 5.6 cm/s MV E/e' (Lateral) 15.8 MV e' Average 4.30 cm/s MV E/e' (Average) 22.3 Tricuspid Valve Name Value Normal TV Regurgitation Doppler TR Peak Velocity 149 cm/s Estimated PAP/RSVP RA Pressure 8 mmHg <=5 PA Systolic Pressure 17 mmHg <36 RV Systolic Pressure 17 mmHg <36 TV Annular TDI TV Lateral Juliette s' Velocity 12.9 cm/s >=9.5 Aortic Valve Name Value Normal AV 2D/MM AV Cusp Sep (MM) 2.0 cm AV Doppler AV Peak Velocity 155 cm/s AV Mean Gradient 4 mmHg AV VTI 36 cm AV Area (Cont Eq VTI) 2.2 cm2 >=3.0 AV Area (Cont Eq Meet) 2.4 cm2 AV DI (Meet) 0.84 AV Regurgitation 2D LVOT Area 2.8 cm2 Ventricles Name Value Normal LV Dimensions 2D/MM IVS Diastolic Thickness (2D) 1.2 cm 0.6-0.9 LVID Diastole (2D) 4.5 cm 3.8-5.2 LVIW Diastolic Thickness (2D) 1.2 cm 0.6-0.9 LVID Systole (2D) 3.3 cm 2.2-3.5 LVOT Diameter 1.9 cm LV Mass (2D Cubed) 198.10 g 67.00-162.00 LV Mass Index (2D Cubed) 106 g/m2 43-95 Relative Wall Thickness (2D) 0.53 <=0.42 IVS/LVIW Diastolic Thickness (2D) 1.00 0.00-1.50 LV Fractional Shortening/Ejection Fraction 2D/MM LV Fractional Shortening (2D) 27 % 27-45 LV EF (2D Teichholz) 52 % RV Dimensions 2D/MM TV Lateral Juliette s' Velocity 12.9 cm/s >=9.5 Atria Name Value Normal LA Dimensions LA Volume (4C A-L) 68 ml LA Volume (BP A-L) 63 ml Pericardium/Pleural There is trivial pericardial effusion with no tamponade. Summary 1. No evidence of PFO. Negative bubble study. Consider KARTHIK if high index of clinical suspicion for embolic stroke. 2. Left ventricle size is normal and systolic function is normal. Estimated ejection fraction is 55-60%. There is grade I diastolic dysfunction. There is concentric hypertrophy noted. 3. Right ventricle chamber size is normal and systolic function is normal. Estimated RVSP is 17 mmHg. 4. Trace MR, TR. 5. The left atrium is mildly enlarged. The right atrium is normal. 6. There is trivial pericardial effusion with no tamponade. Report Signatures Finalized by Timo Villa on 04/28/2025 07:37 PM
[2025-04-27] MEDS: TUBERCULIN PPD INJ 5 UNIT/0.1 ML DOSE ID (11:46)
[2025-04-27 12:51] LABS: Creatinine,Random Urine 104 mg/dL (30-125); Protein Total, Random Urine > 250 mg/dL (1-14); Sodium,Urine Random 31.2 mMol/L (20.0-110.0)
--- NOTE | 2025-04-27 13:18 | PD.RESPRO ---
Documentation for date of: 04/27/25 Subjective Subjective Interval history: No acute overnight events. Seen and examined at bedside and patient does not have any complaints at this time. Neurology also present in the room and at this time suspecting hypertensive encephalopathy to be the etiology of patient's presentation. However, will order orthostatic vitals and follow-up results. MRI brain was negative for acute infarcts. Vital signs stable, blood pressures much better controlled today at 140/53. CBC unremarkable. CHEM panel pending. Pending GI recommendations regarding GI bleed. Nephrology evaluated patient and discussed possible hemodialysis in the future. Renal ultrasound obtained and showed small bilateral kidneys with renal cortical thinning and severe bilateral renal parenchymal scar formation, consistent with CKD. Exam Vital Signs Temp Pulse Resp BP Pulse Ox O2 Del Method 97.2 F 69 14 140/71 H 96 Room Air 04/27/25 08:00 04/27/25 08:09 04/27/25 08:00 04/27/25 08:09 04/27/25 08:00 04/27/25 08:00 Narrative Exam General: AOx3, no acute distress, able to speak full sentences HEENT: NC/AT, mucous membranes moist, bilateral sclera anicteric Cardiovascular: regular rate and rhythm, S1/S2 present, no murmurs appreciated Pulmonary: clear to auscultation bilaterally, no rales/rhonchi/wheezes Abdominal: soft, non-tender, non-distended, no rebound/guarding, normal bowel sounds present Musculoskeletal: normal ROM, no peripheral edema Skin: warm and dry, intact, no rashes Neuro: sensation intact, strength 4/5 in upper and lower extremities, eyes do not track but otherwise CN intact Objective Labs 04/28/25 05:16 04/28/25 05:16 Labs: Laboratory Results - last 24 hr 04/26/25 04/26/25 04/27/25 10:03 20:55 05:04 WBC 5.2 RBC 3.46 L Hgb 10.6 L Hct 31.2 L MCV 90 MCH 30.6 MCHC 34.0 RDW Std Deviation 46.1 Plt Count 106 L Neut % (Auto) 60 Lymph % (Auto) 24 [place] % (Auto) 10 Eos % (Auto) 4 Baso % (Auto) 1 Neut # (Auto) 3.1 Lymph # (Auto) 1.2 [place] # (Auto) 0.5 Eos # (Auto) 0.2 Baso # (Auto) 0.0 Immature Gran # (Auto) 0.05 H Absolute Nucleated RBC 0.00 Immature Gran % 1 H Nucleated RBC % 0 Iron 62 TIBC 252 Iron Saturation 24 Unsat Iron Binding 190 L Free T4 1.07 Ur Collection Type Clean Catch Urine Color Lt-Yellow Urine Clarity Clear Urine pH 6.5 Ur Specific [place] 1.046 H Urine Protein 3+ A Urine Glucose (UA) 3+ A Urine Ketones Negative Urine Blood 1+ A Urine Nitrite Negative Urine Bilirubin Negative Urine Urobilinogen (Auto) Negative Ur Leukocyte Esterase Negative Urine RBC 13 H Urine WBC 5 Ur Squamous Epith Cells 4 Urine Bacteria Rare Ur Culture Indicated? Not Indicated Ur Random Creatinine U Random Total Protein Ur Random Sodium Urine Opiates Screen Negative Urine Fentanyl Screen Negative Ur Barbiturates Screen Negative U Amphetamin/Meth Scrn Negative U Benzodiazepines Scrn Negative U Cocaine Metab Screen Negative U Marijuana (THC) Screen Negative 04/27/25 10:30 WBC RBC Hgb Hct MCV MCH MCHC RDW Std Deviation Plt Count Neut % (Auto) Lymph % (Auto) [place] % (Auto) Eos % (Auto) Baso % (Auto) Neut # (Auto) Lymph # (Auto) [place] # (Auto) Eos # (Auto) Baso # (Auto) Immature Gran # (Auto) Absolute Nucleated RBC Immature Gran % Nucleated RBC % Iron TIBC Iron Saturation Unsat Iron Binding Free T4 Ur Collection Type Urine Color Urine Clarity Urine pH Ur Specific [place] Urine Protein Urine Glucose (UA) Urine Ketones Urine Blood Urine Nitrite Urine Bilirubin Urine Urobilinogen (Auto) Ur Leukocyte Esterase Urine RBC Urine WBC Ur Squamous Epith Cells Urine Bacteria Ur Culture Indicated? Ur Random Creatinine 104 U Random Total Protein > 250 H Ur Random Sodium 31.2 Urine Opiates Screen Urine Fentanyl Screen Ur Barbiturates Screen U Amphetamin/Meth Scrn U Benzodiazepines Scrn U Cocaine Metab Screen U Marijuana (THC) Screen Quality Measures Quality Measures VTE prophylaxis Advance care planning discussed with:: patient and child Assessment & Plan Assessment Current Active Medications: Generic Name Dose Route Start Last Admin Trade Name Freq PRN Reason Stop Dose Admin Acetaminophen 650 mg 04/26/25 13:01 Acetaminophen 325 Mg Tablet PO 05/26/25 13:00 Q6H PRN Fever >100.5 or pain 1-3 Hydrocodone Bitart/Acetaminophen 1 tab 04/26/25 13:01 04/26/25 15:34 Hydrocodone/Apap 10/325 Tab PO 05/01/25 13:00 1 tab Q4HR PRN Administration PAIN SCALE 7-10 (Severe Amlodipine Besylate 2.5 mg 04/27/25 09:00 04/27/25 08:09 Amlodipine Besylate 2.5 Mg Tablet PO 05/27/25 08:59 2.5 mg QDAY JAYLYN Administration Ascorbic Acid 500 mg 04/27/25 09:00 04/27/25 09:09 Ascorbic Acid 250 Mg Tablet PO 05/27/25 08:59 Not Given BID JAYLYN Aspirin 81 mg 04/27/25 09:00 04/27/25 08:09 Aspirin Ec 81 Mg Tabec PO 05/27/25 08:59 81 mg QDAY JAYLYN Administration Calcitriol 0.25 mcg 04/27/25 10:15 04/27/25 10:08 Calcitriol 0.25 Mcg Capsule PO 05/27/25 10:14 Not Given QDAY JAYLYN Clopidogrel Bisulfate 75 mg 04/27/25 09:00 04/27/25 08:10 Clopidogrel Bisulfate 75 Mg Tablet PO 05/27/25 08:59 75 mg QDAY JAYLYN Administration Dextrose 25 ml 04/26/25 13:15 Dextrose 50%-Water Inj 50 Ml Syringe IV 05/26/25 13:14 Q15MIN PRN BG 50-70 responsive npo pt Dextrose 50 ml 04/26/25 13:15 Dextrose 50%-Water Inj 50 Ml Syringe IV 05/26/25 13:14 Q15MIN PRN BG <50 OR BG <70 & pt unresponsive Donepezil HCl 5 mg 04/27/25 09:00 04/27/25 08:10 Donepezil Hcl 5 Mg Tablet PO 05/27/25 08:59 5 mg QDAY JAYLYN Administration Glucagon 1 mg 04/26/25 13:15 Glucagon Inj 1 Mg Vial IM Q15MIN PRN BG <70, and no IV access Insulin Human Lispro 0 unit 04/26/25 13:30 04/27/25 11:19 Insulin Lispro (Admelog) 1 Unit/0.01 Ml Unit SC 05/26/25 13:29 Not Given Q6HR JAYLYN Protocol Labetalol HCl 10 mg 04/26/25 14:31 Labetalol Inj 5 Mg/Ml Vial 4 Ml IVP X1 PRN sbp > 220 or dbp >120 Levothyroxine Sodium 100 mcg 04/27/25 06:00 04/27/25 05:21 Levothyroxine Sodium 100 Mcg Tablet PO 05/27/25 05:59 100 mcg ACBR JAYLYN Administration Meclizine HCl 25 mg 04/26/25 16:57 Meclizine Hcl 25 Mg Tablet PO 05/26/25 16:56 TID PRN DIZZINESS Montelukast Sodium 10 mg 04/27/25 09:00 04/27/25 08:10 Montelukast Sodium 10 Mg Tablet PO 05/27/25 08:59 10 mg DAILY JAYLYN Administration Ondansetron HCl 4 mg 04/26/25 09:44 Ondansetron Inj 2 Mg/Ml Inj 2 Ml IVP 05/26/25 09:43 Q4HR PRN NAUSEA OR VOMITING Oxycodone/Acetaminophen 1 tab 04/26/25 13:01 Oxycodone/Apap 5/325 Tablet PO 05/01/25 13:00 Q6H PRN PAIN SCALE 4-6 (Moderate Pantoprazole Sodium 40 mg 04/26/25 21:00 04/27/25 08:09 Pantoprazole Inj 40 Mg Vial IVP 05/26/25 20:59 40 mg BID JAYLYN Administration Fluticasone/Salmeterol 1 puff 04/26/25 19:00 04/26/25 19:51 Fluticasone/Salmeterol 100/50 14 Dose Inh INH 05/26/25 18:59 1 puff BIDRT JAYLYN Administration Thiamine HCl 200 mg 04/27/25 09:00 04/27/25 09:10 Thiamine Inj 100 Mg/Ml Vial 2 Ml IVP 05/27/25 08:59 Not Given QDAY JAYLYN Zinc Sulfate 220 mg 04/27/25 09:00 04/27/25 09:10 Zinc Sulfate 220 Mg Capsule PO 05/27/25 08:59 Not Given QDAY JAYLYN Plan 69-year-old female with a past medical history of hypertension, hyperlipidemia, insulin-dependent type 2 diabetes mellitus, gastroparesis, hypothyroidism who was admitted for CVA workup. #CVA workup, stroke ruled out #TIA vs hypertensive encephalopathy vs orthostasis Presents after feeling lightheaded, nauseous, 1 episode of nonbloody emesis after using the restroom. Upon evaluation in ED, son states that patient's speech is not at her baseline. CT head and CTA head/neck negative. MRI negative for acute infarct. BP on admission noted to be 215/89. Teleneurology consulted and recommended admission for further workup. TGL 194, LDL 102, HDL 43. A1c 8.8%. ? Neurology consulted, appreciate recommendations ? Follow-up echo ? Follow-up orthostatic vitals ? Stroke ruled out so no longer permissive hypertension and strict BP control ? Labetalol as needed ? Aspirin 81 mg and Plavix 75 mg daily ? Follow-up physical therapy #GI bleed Endorse having episodes of diarrhea with blood in the stool. Hemoglobin stable, close to patient's baseline at this time. ? GI consulted, appreciate recs ? Protonix 40 mg BID ? NPO for pending EGD #TATY on CKD May be due to progressing CKD vs TATY on CKD. Followed by Dr. Sparks outpatient. ? Nephrology consulted, appreciate recommendations ? Avoid nephrotoxic agents when possible and renally dose medications #Dementia History of alzheimer's dementia, takes donepezil 5 mg po qday at home ? Home donepezil 5 mg p.o. daily #COPD Takes Wixela 1 puff daily, singulair (montelukast) albuterol 2 puffs daily ? Fluticasone/salmeterol BID ? Montelukast 10 mg daily #Hypothyroidism History of thyroid surgery ? Levothyroxine 100 mcg daily #Insulin-dependent diabetes mellitus #Gastroparesis Takes Toujeo max 20 units daily, Mounjaro 10 mg weekly. A1c of 8.8%. ? SSI ? Hypoglycemic protocol in place Hospital Management: Disposition: Tele, neuro recs, EGD Diet: NPO, pending EGD GI Prophylaxis: protonix DVT Prophylaxis: heparin CODE STATUS: limited code (DNI, CPR okay) ----- Plan discussed with attending physician Dr. Kristy Herman MD PGY-2 Internal Medicine Attending Provider Attestation/Addendum I have examined the patient, reviewed labs and imaging findings, discussed the case with the resident(s), and reviewed entered orders. I agree with the plan of care as outlined in this note. Dr. Kristy MD
[2025-04-27] MEDS: FLUTICASONE/SALMETEROL 100/50 14 DOSE INH 1 PUFF INH ×2 (13:43→19:56)
[2025-04-27 14:51] LABS: Alanine Aminotransferase 7 U/L (10-49); Albumin, Serum 3.1 gm/dL (3.4-4.8); Albumin/Globulin Ratio 1.6 (1.2-2.2); Alkaline Phosphatase 92 U/L (46-116); Aspartate Amino Transferase 22 U/L (0-34); BUN/Creatinine Ratio 8 Ratio (12-20); Bilirubin,Total 0.4 mg/dL (0.3-1.2); Blood Urea Nitrogen 22 mg/dL (9-23); Calcium 8.5 mg/dL (8.3-10.6); Calcium (Corrected) 9.2 mg/dL (8.5-10.1); Carbon Dioxide 16.9 mMol/L (20.0-31.0); Cardiac Risk Estimate 4.3 RATIO (3.7-5.6); Cholesterol 184 mg/dL (132-200); Creatinine (Component) 2.8 mg/dL (0.6-1.3); Estimated Creatinine Clearance 18.0 mL/min (>60); Globulin 1.9 gm/dL (2.3-3.5); Glucose 159 mg/dL (74-106); HDL Cholesterol 43 mg/dL (40-60); LDL Cholesterol,Calculated 102 mg/dL (0-130); Magnesium 1.8 mg/dL (1.6-2.6); Phosphorous 3.7 mg/dL (2.4-5.1); Total Protein 5.0 gm/dL (5.7-8.2); Triglycerides 194 mg/dL (30-150); Uric Acid 7.3 mg/dL (3.1-7.8); eGFR 18 See Note
[2025-04-27 15:29] LABS: Anion Gap 17 (7-16); Chloride 112 mMol/L (98-107); Osmolality,Calculated 296 (275-295); Potassium 3.6 mMol/L (3.4-5.1); Sodium 146 mMol/L (136-145)
--- NOTE | 2025-04-27 16:32 | PC.SS ---
Rounding note: Pending EGD. d/c plan: home. PT recommending possible short-term SNF, but son and patient prefer home.
[2025-04-27] MEDS: NA SU/NAHCO3/KC/PEG (Golytely) 4,000 ML BTL 4000 ML PO (17:52)
--- NOTE | 2025-04-27 18:00 | ESCONSULT_ITS ---
HPI Data of Consult Consult date: 04/27/25 Requesting Physician: Julián Wagner MD Admitting Provider: Julián Wagner MD Attending Provider: Julián Wagner MD Primary Care Provider: Kuldeep Abrams MD Consult Narrative Reason for consult: TATY on CKD IV History of present illness: Patient is a 69 year old female with past medical history of HTN, HLD, Insulin- dependent diabetes, hypothyroidism, gastroparesis, dementia, nutritional deficiencywho presents to the ED after having stroke like symptoms. Patient's son was present and helped with history of patient. Patient this morning was reported to be stumbling while walking to the bathroom, she couldn't find her walker, sat down and called for her son. Patient threw up clear/white billious vomit x1 and was being held up by her son during this time, as she became diffusely weak and was slumping over with slurred speech as well. At this point the son called EMS and was transferred to the ED. Patient's son states she had an episode of stumbling and slumping over earlier in March. Patient endorsed having occipital headache, having blood in diarrhea yesterday. Patient denies fever, chills, weight loss, chest pain, shortness of breath. In ED, BP 215/89, HR 65, RR 20, temp 98.1 F, 99% O2 on room air. Hgb 11.6, platelets 116, creatinine 3.0, egfr 16, glucose 230, A1c 8.8, BNP 122. UA showed specific gravity 1.046, 3+ protein, 3+ glucose, 1+ blood, 13 RBC, no UTI. EKG showed sinus rhythm. CXR showed mild to moderate enlargement cardiac contour; Moderate vascular congestion. Head CT negative for acute infarct but showed subtle low density in the right temporal lobe, possibly artifact. CT head/neck negative. In the ED, patient was given labetalol 10 mg iv x2, 500 ml LR x1 Patient was admitted for stroke workup. Nephrology was consulted for management of TATY on CKD IV, possibly requiring dialysis. 04/27/25: Patient seen and assessed with son at bedside. concession attendant present. Was recently seen outpatient on 04/24 for follow up. Son reported that patient has had significantly decreased urine output, borderline anuric. Renal panel since 01/20/25 showed significantly worsened renal function with GFR 16, previously GFR 32 on 05/15/24. Likely secondary to uncontrolled diabetes noted since May 2024 (A1c 6.5, now 8.8). Discussed with patient and family that may need to consider dialysis soon. Ordered bilateral renal US, urine electrolytes, and serology testing. Concern for underlying nephritis due to blood in urine. Monitor UOP and will follow up AM renal panel. cc:: cc: Julián Wagner MD Exam Vital Signs Temp Pulse Resp BP Pulse Ox O2 Del Method O2 Flow Rate 96.9 F 62 18 146/62 H 97 Room Air 3 04/27/25 16:49 04/27/25 17:19 04/27/25 17:19 04/27/25 17:19 04/27/25 17:19 04/27/25 12:00 04/27/25 16:49 Narrative Exam Physical Exam General: Awake and in no acute distress. Appears dazed but otherwise answering questions appropriately. HEENT: Normocephalic, atraumatic, mucous membranes moist. Heart: Regular rate and rhythm, normal S1 and S2, no murmurs. Lungs: Clear to auscultation with no wheezing or crackles. Abdomen: Soft, nondistended, nontender, positive bowel sounds. No guarding or rebound tenderness. Neurologic: Alert and oriented x3, no gross neurological deficit, and patient able to move all 4 extremities. Extremities: No edema. Skin: No rash or ecchymoses. Results Labs 04/28/25 05:16 04/28/25 05:16 Labs: Short CBC 04/27/25 Range/Units 05:04 WBC 5.2 (3.6-11.0) Thou/mm3 Hgb 10.6 L (12.0-16.0) g/dL Hct 31.2 L (36.0-46.0) % Plt Count 106 L (140-440) Thou/mm3 BMP 04/27/25 05:04 Sodium 146 H Potassium 3.6 Chloride 112 H Carbon Dioxide 16.9 L BUN 22 Creatinine 2.8 H Glucose 159 H D Calcium 8.5 Liver Function 04/27/25 Range/Units 05:04 Total Bilirubin 0.4 (0.3-1.2) mg/dL AST 22 (0-34) U/L ALT 7 L (10-49) U/L Alkaline Phosphatase 92 (46-116) U/L Albumin 3.1 L (3.4-4.8) gm/dL Urine 04/26/25 Range/Units 20:55 Urine Color Lt-Yellow (Lt Yel-Yel) Urine Clarity Clear (Clear/Hazy) Urine pH 6.5 (5.0-7.0) Ur Specific [place] 1.046 H (1.001-1.035) Urine Protein 3+ A (Neg - Trace) Urine Glucose (UA) 3+ A (Negative) Quality Measures Quality Measures VTE prophylaxis Advance care planning discussed with:: patient and child Medications Home Medications and Allergies Home Medications ?Medication ?Instructions ?Recorded ?Confirmed ?Type calcitriol 0.25 mcg capsule 0.25 mcg PO DAILY 04/29/22 04/26/25 History insulin glargine U-300 conc 300 20 unit subcut DAILY 1 06/30/21 04/26/25 History unit/mL (3 mL) subcutaneous pen (Toujeo Max U-300 SoloStar) meclizine 25 mg tablet 25 mg PO TID PRN Dizziness 1 06/30/21 04/26/25 History montelukast 10 mg tablet 10 mg PO DAILY 04/29/2204/08 History pregabalin 150 mg capsule 150 mg PO BID 04/29/2204/26 History rosuvastatin 40 mg tablet 25 mg PO DAILY 04/29/2204/08 History valsartan 160 mg tablet 160 mg PO EVERYOTHERDAY 04/0804/26/25 History albuterol sulfate 90 mcg/actuation 2 puff inhalation Q DAY 04/26/25 04/26/25 History aerosol inhaler amlodipine 2.5 mg tablet 2.5 mg PO QDAY 04/26/2504/08 History clopidogrel 75 mg tablet 75 mg PO QDAY 04/26/2504/26 History donepezil 5 mg tablet 5 mg PO QDAY 04/26/25 History fluticasone 500 mcg-salmeterol 50 1 inh inhalation BID 04/26/25 04/26/25 History mcg/dose blistr powdr for inhalation (Wixela Inhub) hydrocodone 10 mg-acetaminophen 1 tab PO Q6HR 04/26/25 04/26/25 History 325 mg tablet levothyroxine 100 mcg tablet 100 mcg PO QDAY 04/26/25 04/26/25 History tirzepatide 10 mg/0.5 mL 10 mg subcut QWEEK 04/26/25 04/26/25 History subcutaneous pen injector (Sary) zinc sulfate 50 mg zinc (220 mg) 50 mg PO DAILY 04/26/25 History capsule Allergies Allergy/AdvReac Type Severity Reaction Status Date / Time moxifloxacin (From Avelox) Allergy ITCHING Verified 04/26/25 10:25 Visit Medications Acetaminophen (Acetaminophen 325 Mg Tablet) 650 mg PO Q6H PRN PRN Reason: Fever >100.5 or pain 1-3 Stop: 05/26/25 13:00 Hydrocodone Bitart/Acetaminophen (Hydrocodone/Apap 10/325 Tab) 1 tab PO Q4HR PRN PRN Reason: PAIN SCALE 7-10 (Severe Stop: 05/01/25 13:00 Last Admin: 04/26/25 15:34 Dose: 1 tab Amlodipine Besylate (Amlodipine Besylate 2.5 Mg Tablet) 2.5 mg PO QDAY [facility] Stop: 05/27/25 08:59 Last Admin: 04/27/25 08:09 Dose: 2.5 mg Ascorbic Acid (Ascorbic Acid 250 Mg Tablet) 500 mg PO BID [facility] Stop: 05/27/25 08:59 Last Admin: 04/27/25 09:09 Dose: Not Given Aspirin (Aspirin Ec 81 Mg Tabec) 81 mg PO QDAY [facility] Stop: 05/27/25 08:59 Last Admin: 04/27/25 08:09 Dose: 81 mg Calcitriol (Calcitriol 0.25 Mcg Capsule) 0.25 mcg PO QDAY [facility] Stop: 05/27/25 10:14 Last Admin: 04/27/25 10:08 Dose: Not Given Clopidogrel Bisulfate (Clopidogrel Bisulfate 75 Mg Tablet) 75 mg PO QDAY [facility] Stop: 05/27/25 08:59 Last Admin: 04/27/25 08:10 Dose: 75 mg Dextrose (Dextrose 50%-Water Inj 50 Ml Syringe) 25 ml IV Q15MIN PRN PRN Reason: BG 50-70 responsive npo pt Stop: 05/26/25 13:14 Dextrose (Dextrose 50%-Water Inj 50 Ml Syringe) 50 ml IV Q15MIN PRN PRN Reason: BG <50 OR BG <70 & pt unresponsive Stop: 05/26/25 13:14 Donepezil HCl (Donepezil Hcl 5 Mg Tablet) 5 mg PO QDAY [facility] Stop: 05/27/25 08:59 Last Admin: 04/27/25 08:10 Dose: 5 mg Glucagon (Glucagon Inj 1 Mg Vial) 1 mg IM Q15MIN PRN PRN Reason: BG <70, and no IV access Insulin Human Lispro (Insulin Lispro (Admelog) 1 Unit/0.01 Ml Unit) 0 unit SC Q6HR [facility]; Protocol Stop: 05/26/25 13:29 Last Admin: 04/27/25 17:52 Dose: Not Given Labetalol HCl (Labetalol Inj 5 Mg/Ml Vial 4 Ml) 10 mg IVP X1 PRN PRN Reason: sbp > 220 or dbp >120 Levothyroxine Sodium (Levothyroxine Sodium 100 Mcg Tablet) 100 mcg PO ACBR [facility] Stop: 05/27/25 05:59 Last Admin: 04/27/25 05:21 Dose: 100 mcg Meclizine HCl (Meclizine Hcl 25 Mg Tablet) 25 mg PO TID PRN PRN Reason: DIZZINESS Stop: 05/26/25 16:56 Montelukast Sodium (Montelukast Sodium 10 Mg Tablet) 10 mg PO DAILY [facility] Stop: 05/27/25 08:59 Last Admin: 04/27/25 08:10 Dose: 10 mg Ondansetron HCl (Ondansetron Inj 2 Mg/Ml Inj 2 Ml) 4 mg IVP Q4HR PRN PRN Reason: NAUSEA OR VOMITING Stop: 05/26/25 09:43 Oxycodone/Acetaminophen (Oxycodone/Apap 5/325 Tablet) 1 tab PO Q6H PRN PRN Reason: PAIN SCALE 4-6 (Moderate Stop: 05/01/25 13:00 Pantoprazole Sodium (Pantoprazole Inj 40 Mg Vial) 40 mg IVP BID [facility] Stop: 05/26/25 20:59 Last Admin: 04/27/25 08:09 Dose: 40 mg Fluticasone/Salmeterol (Fluticasone/Salmeterol 100/50 14 Dose Inh) 1 puff INH BIDRT [facility] Stop: 05/26/25 18:59 Last Admin: 04/27/25 13:43 Dose: 1 puff Thiamine HCl (Thiamine Inj 100 Mg/Ml Vial 2 Ml) 200 mg IVP QDAY [facility] Stop: 05/27/25 08:59 Last Admin: 04/27/25 09:10 Dose: Not Given Zinc Sulfate (Zinc Sulfate 220 Mg Capsule) 220 mg PO QDAY [facility] Stop: 05/27/25 08:59 Last Admin: 04/27/25 09:10 Dose: Not Given Discontinued Medications Benzocaine (Benzocaine 20% (Hurricaine) [place] 1 Dose) 0 dose TOP X1 ONE Stop: 04/27/25 16:23 Diphenhydramine HCl (Diphenhydramine Inj 50 Mg/Ml Vial) 25 mg IVP PRNMRX1 PRN PRN Reason: MODERATE SEDATION Stop: 04/27/25 18:23 Fentanyl Citrate (Fentanyl Cit Inj 50 Mcg/Ml Amp 2ml) 50 mcg IVP Q2M PRN PRN Reason: MODERATE SEDATION Stop: 04/27/25 18:23 Heparin Sodium (Porcine) (Heparin Sod Inj 5000 Unit/Ml Vial) 5,000 unit SC Q12HR [facility] Stop: 05/10/25 20:59 Hydralazine HCl (Hydralazine Hcl 10 Mg Tablet) 10 mg PO X1 ONE Stop: 04/27/25 00:51 Last Admin: 04/27/25 02:25 Dose: 10 mg Lactated Ringer's (Lactated Ringers) 1,000 mls @ 500 mls/hr IV .Q2H ONE Stop: 04/26/25 11:44 Last Infusion: 04/26/25 12:35 Dose: Infused Labetalol HCl (Labetalol Inj 5 Mg/Ml Vial 4 Ml) 10 mg IVP Q15M PRN PRN Reason: hypertension Last Admin: 04/26/25 11:43 Dose: 10 mg Lorazepam (Lorazepam 2 Mg/Ml Vial) 2 mg IVP X1 ONE Stop: 04/26/25 16:58 Last Admin: 04/26/25 17:08 Dose: 2 mg Meperidine HCl (Meperidine Inj 50 Mg/Ml Vial) 25 mg IVP Q2M PRN PRN Reason: MODERATE SEDATION Stop: 04/27/25 18:23 Midazolam HCl (Midazolam Inj 1 Mg/Ml Vial 2 Ml) 2 mg IVP Q2M PRN PRN Reason: Moderate Sedation Stop: 04/27/25 18:22 Polyethylene Glycol/Electrolytes (Na Berry/Nahco3/Pramod/Peg (Golytely) 4,000 Ml Btl) 4,000 ml PO X1 PRN PRN Reason: BOWEL PREP Last Admin: 04/27/25 17:52 Dose: 1 bottle Pregabalin (Pregabalin 75 Mg Capsule) 150 mg PO BID JAYLYN Stop: 05/27/25 08:59 Last Admin: 04/27/25 09:09 Dose: Not Given Tuberculin PPD (Tuberculin Ppd Inj 5 Unit/0.1 Ml Dose) 5 unit ID X1 ONE Stop: 04/27/25 10:00 Last Admin: 04/27/25 11:46 Dose: 5 unit Vitamin B Complex/Vit C/Folic Acid (Vitamin B Complex Tablet) 1 tab PO X1 ONE Stop: 04/26/25 17:09 Last Admin: 04/26/25 19:01 Dose: 1 tab Zinc Sulfate (Zinc Sulfate 220 Mg Capsule) 220 mg PO X1 ONE Stop: 04/26/25 17:09 Last Admin: 04/26/25 19:01 Dose: 220 mg Assessment & Plan Plan Patient is a 69 year old female with past medical history of HTN, HLD, Insulin- dependent diabetes, hypothyroidism, gastroparesis, dementia, nutritional deficiency admitted on 04/26 for stroke work up. Nephrology consulted for management of CKD IV, possibly requiring dialysis. #TATY on CKD IV 2/2 diabetic nephropathy #Microscopic hematuria, concern for underlying nephritis - Recently seen outpatient on 04/24 for follow up. Son reported that patient has had significantly decreased urine output, borderline anuric. - Renal panel since 01/20/25 showed significantly worsened renal function with GFR 16, previously GFR 32 on 05/15/24. Discontinued from Farxiga and valsartan earlier this year. - Creatinine 3.0 on admission -> 2.8 s/p 1L LR in ED - UA 04/27 showed specific gravity 1.046, 3+ protein, 3+ glucose, 1+ blood, 13 RBC, no UTI. - Hepatitis panel negative. - Likely secondary to worsening, uncontrolled diabetes since May 2024 (A1c 6.5, now 8.8). - Also concern for underlying nephritis given microscopic hematuria Plan: - Given decreased urine output and low GFR, discussed with patient and family that may need to consider dialysis soon. 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 Sparks. Lissette Plascencia DO, PGY-1 Attending Provider Attestation/Addendum Patient currently seen and examined with resident physician Dr. Plascencia. Note reviewed, agree with findings and recommendations. Patient currently seen in medical floor Son at bedside- laborer/key man. Has worsening renal function for past few months. ++ proteinuria. HgA1C 8.4 suspect progressive Diabetic nephropathy. Renal US findings shows advanced CKD with scarring. No need for renal biopsy Urine extremely concentrated which can skew the results- ++ protein, blood. One of my CKD patient. Will monitor renal fx closely. No need for emergency dialysis. add bicitra Neuro w/u pending
[2025-04-27 20:36] LABS: Folate 15.54 ng/mL (>5.38); Vitamin B12 386 pg/mL (211-911)
[2025-04-27] MEDS: CITRIC ACID/SODIUM CITR 15 ML UDC (BICITRA) 30 ML PO (21:08)
[2025-04-27] MEDS: ASCORBIC ACID 250 MG TABLET 500 MG PO (21:08)
[2025-04-28] VITALS (23 sets, daily range): BP systolic 123–186; BP diastolic 50–98; PULSE 59–90; RESP 12–99; TEMP 36.1–36.6; O2SAT 93–100; BMI 15.0
[2025-04-28] MEDS: LEVOTHYROXINE SODIUM 100 MCG TABLET PO (05:16)
[2025-04-28 06:09] LABS: Basophils # (Auto) 0.1 Thou/mm3 (0.0-0.2); Basophils % (Auto) 1 % (0-2.5); Eosinophils # (Auto) 0.2 Thou/mm3 (0.0-0.5); Eosinophils % (Auto) 5 % (0-10); Hematocrit 31.6 % (36.0-46.0); Hemoglobin 11.1 g/dL (12.0-16.0); Immature Granulocytes Auto 0.26 Thou/mm3 (0.00-0.00); Lymphocytes # (Auto) 1.1 Thou/mm3 (1.0-4.8); Lymphocytes % (Auto) 22 % (10-50); Mean Corpuscular HGB Conc 35.1 g/dl (31.0-37.0); Mean Corpuscular Hemoglobin 30.7 pg (25.0-35.0); Mean Corpuscular Volume 88 fL (80-100); Monocytes # (Auto) 0.5 Thou/mm3 (0.0-0.8); Monocytes % (Auto) 10 % (0-12); Neutrophils # (Auto) 2.9 Thou/mm3 (1.8-7.7); Neutrophils % (Auto) 57 % (37-80); Nucleated Red Blood Cell # 0.00 Thou/mm3 (0.00-0.00); Nucleated Red Blood Cell % 0 /100 WBC (0); Platelet Count 89 Thou/mm3 (140-440); RDW Standard Deviation 44.6 fL (36.4-46.3); Red Blood Count 3.61 Miln/mm3 (4.00-5.20); White Blood Count 5.1 Thou/mm3 (3.6-11.0)
[2025-04-28 06:25] LABS: Alanine Aminotransferase 11 U/L (10-49); Albumin, Serum 3.0 gm/dL (3.4-4.8); Albumin/Globulin Ratio 1.6 (1.2-2.2); Alkaline Phosphatase 101 U/L (46-116); Anion Gap 13 (7-16); Aspartate Amino Transferase 22 U/L (0-34); BUN/Creatinine Ratio 9 Ratio (12-20); Bilirubin,Total 0.7 mg/dL (0.3-1.2); Blood Urea Nitrogen 27 mg/dL (9-23); Calcium 8.6 mg/dL (8.3-10.6); Calcium (Corrected) 9.4 mg/dL (8.5-10.1); Carbon Dioxide 23.2 mMol/L (20.0-31.0); Chloride 107 mMol/L (98-107); Creatinine (Component) 3.0 mg/dL (0.6-1.3); Estimated Creatinine Clearance 16.8 mL/min (>60); Globulin 1.9 gm/dL (2.3-3.5); Glucose 129 mg/dL (74-106); Magnesium 1.8 mg/dL (1.6-2.6); Osmolality,Calculated 292 (275-295); Phosphorous 3.4 mg/dL (2.4-5.1); Potassium 3.6 mMol/L (3.4-5.1); Sodium 143 mMol/L (136-145); Total Protein 4.9 gm/dL (5.7-8.2); eGFR 16 See Note
--- NOTE | 2025-04-28 07:01 | ESPR_ITS ---
Documentation for date of: 04/28/25 Subjective Subjective Interval history: Patient is a 69 year old female with past medical history of HTN, HLD, Insulin- dependent diabetes, hypothyroidism, gastroparesis, dementia, nutritional deficiencywho presents to the ED after having stroke like symptoms. Patient's son was present and helped with history of patient. Patient this morning was reported to be stumbling while walking to the bathroom, she couldn't find her walker, sat down and called for her son. Patient threw up clear/white billious vomit x1 and was being held up by her son during this time, as she became diffusely weak and was slumping over with slurred speech as well. At this point the son called EMS and was transferred to the ED. Patient's son states she had an episode of stumbling and slumping over earlier in March. Patient endorsed having occipital headache, having blood in diarrhea yesterday. Patient denies fever, chills, weight loss, chest pain, shortness of breath. In ED, BP 215/89, HR 65, RR 20, temp 98.1 F, 99% O2 on room air. Hgb 11.6, platelets 116, creatinine 3.0, egfr 16, glucose 230, A1c 8.8, BNP 122. UA showed specific gravity 1.046, 3+ protein, 3+ glucose, 1+ blood, 13 RBC, no UTI. EKG showed sinus rhythm. CXR showed mild to moderate enlargement cardiac contour; Moderate vascular congestion. Head CT negative for acute infarct but showed subtle low density in the right temporal lobe, possibly artifact. CT head/neck negative. In the ED, patient was given labetalol 10 mg iv x2, 500 ml LR x1 Patient was admitted for stroke workup. Nephrology was consulted for management of TATY on CKD IV, possibly requiring dialysis. 04/27/25: Patient seen and assessed with son at bedside. historic interpreter present. Was recently seen outpatient on 04/24 for follow up. Son reported that patient has had significantly decreased urine output, borderline anuric. Renal panel since 01/20/25 showed significantly worsened renal function with GFR 16, previously GFR 32 on 05/15/24. Likely secondary to uncontrolled diabetes noted since May 2024 (A1c 6.5, now 8.8). Discussed with patient and family that may need to consider dialysis soon. Ordered bilateral renal US, urine electrolytes, and serology testing. Concern for underlying nephritis due to blood in urine. Monitor UOP and will follow up AM renal panel. 04/28/2025 patient currently seen in medical floor. Resting comfortably. More alert and awake. She is getting her echocardiogram. Vital signs have been stable labs and medications have been reviewed. GFR 16.Renal ultrasound showed a small kidneys consistent with her age. Urinalysis showed 3+ protein consistent with a diabetic nephropathy and a 1+ blood. Noted primary team ordered serology. Due to small kidneys and cortical thinning doubt that biopsy will need any additional information unless serology comes back positive then we will consider biopsy. Hold off on dialysis. Did explain to son if GFR goes below 15 will consider dialysis. Review of Systems Review of Systems Narrative Review of Systems: CONSTITUTIONAL: Patient denies any fever, chills. Complaining of fatigue HEENT: Denies any visual disturbances or hearing problems. CARDIOVASCULAR: Patient denies any chest pain, shortness of breath, swelling in the lower extremities. PULMONARY: Patient denies any shortness of breath, cough. GASTROINTESTINAL: Patient denies any abdominal pain, constipation, nausea, vomiting, diarrhea. GENITOURINARY: Decreased urinary output per patient SKIN: Denies any rash. MUSCULOSKELETAL: Denies any muscular skeletal problems of joint pains. NEUROLOGICAL: Denies any neurological problems of strokes, seizures or confusion. Denies any memory problems. PSYCHIATRIC: Denies any depression or anxiety. LYMPHATICS : No lymphadenopathy Exam Vital Signs Temp Pulse Resp BP Pulse Ox O2 Del Method O2 Flow Rate 36.4 C 90 17 186/83 H 98 Room Air 3 04/28/25 03:45 04/28/25 04:00 04/28/25 03:45 04/28/25 03:45 04/28/25 03:45 04/28/25 03:45 04/27/25 16:49 Narrative Exam GENERAL APPEARANCE: Patient seems to be comfortable, adequately hydrated and nourished. HEENT: EOMI, PERRLA NECK: Neck supple, no JVD or bruit CARDIOVASCULAR: Heart regular, no murmurs LUNGS/CHEST: Chest clear to auscultation. No rales, rhonchi, wheezing ABDOMEN: Soft, nontender, nondistended. No masses. Normal bowel sounds. EXTREMITIES: No edema, clubbing or cyanosis. SKIN: Skin exam normal without any rashes MUSCULOSKELETAL: Able to move all extremities NEUROLOGICAL : No neurological deficits Objective Labs 04/28/25 05:16 04/28/25 05:16 Labs: Laboratory Results - last 24 hr 04/26/25 04/27/25 04/27/25 10:03 05:04 10:30 WBC RBC Hgb Hct MCV MCH MCHC RDW Std Deviation Plt Count Neut % (Auto) Lymph % (Auto) [place] % (Auto) Eos % (Auto) Baso % (Auto) Neut # (Auto) Lymph # (Auto) [place] # (Auto) Eos # (Auto) Baso # (Auto) Immature Gran # (Auto) Absolute Nucleated RBC Immature Gran % Nucleated RBC % Sodium 146 H Potassium 3.6 Chloride 112 H Carbon Dioxide 16.9 L Anion Gap 17 H BUN 22 Creatinine 2.8 H Estim Creat Clear Calc 18.0 L eGFR 18 L BUN/Creatinine Ratio 8 L Glucose 159 H D Calculated Osmolality 296 H Uric Acid 7.3 Calcium 8.5 Corrected Calcium 9.2 Phosphorus 3.7 Magnesium 1.8 Total Bilirubin 0.4 AST 22 ALT 7 L Alkaline Phosphatase 92 Total Protein 5.0 L Albumin 3.1 L Globulin 1.9 L Albumin/Globulin Ratio 1.6 Triglycerides 194 H Cholesterol 184 LDL Cholesterol, Calc 102 HDL Cholesterol 43 Cholesterol/HDL Ratio 4.3 Vitamin B12 386 Folate 15.54 Ur Random Creatinine 104 U Random Total Protein > 250 H Ur Random Sodium 31.2 04/28/25 05:16 WBC 5.1 RBC 3.61 L Hgb 11.1 L Hct 31.6 L MCV 88 MCH 30.7 MCHC 35.1 RDW Std Deviation 44.6 Plt Count 89 L Neut % (Auto) 57 Lymph % (Auto) 22 [place] % (Auto) 10 Eos % (Auto) 5 Baso % (Auto) 1 Neut # (Auto) 2.9 Lymph # (Auto) 1.1 [place] # (Auto) 0.5 Eos # (Auto) 0.2 Baso # (Auto) 0.1 Immature Gran # (Auto) 0.26 H Absolute Nucleated RBC 0.00 Immature Gran % 5 H Nucleated RBC % 0 Sodium 143 Potassium 3.6 Chloride 107 Carbon Dioxide 23.2 Anion Gap 13 BUN 27 H Creatinine 3.0 H Estim Creat Clear Calc 16.8 L eGFR 16 L BUN/Creatinine Ratio 9 L Glucose 129 H Calculated Osmolality 292 Uric Acid Calcium 8.6 Corrected Calcium 9.4 Phosphorus 3.4 Magnesium 1.8 Total Bilirubin 0.7 AST 22 ALT 11 Alkaline Phosphatase 101 Total Protein 4.9 L Albumin 3.0 L Globulin 1.9 L Albumin/Globulin Ratio 1.6 Triglycerides Cholesterol LDL Cholesterol, Calc HDL Cholesterol Cholesterol/HDL Ratio Vitamin B12 Folate Ur Random Creatinine U Random Total Protein Ur Random Sodium Assessment & Plan Additional Assessment & Plan Additional Plan: Patient is a 69 year old female with past medical history of HTN, HLD, Insulin- dependent diabetes, hypothyroidism, gastroparesis, dementia, nutritional deficiency admitted on 04/26 for stroke work up. Nephrology consulted for management of CKD IV, possibly requiring dialysis. #TATY on CKD IV 2/2 diabetic nephropathy #Microscopic hematuria, concern for underlying nephritis - Recently seen outpatient on 04/24 for follow up. Son reported that patient has had significantly decreased urine output, borderline anuric. - Renal panel since 01/20/25 showed significantly worsened renal function with GFR 16, previously GFR 32 on 05/15/24. Discontinued from Farxiga and valsartan earlier this year. - Creatinine 3.0 on admission -> 2.8 s/p 1L LR in ED - UA 04/27 showed specific gravity 1.046, 3+ protein, 3+ glucose, 1+ blood, 13 RBC, no UTI. - Hepatitis panel negative. - Likely secondary to worsening, uncontrolled diabetes since May 2024 (A1c 6.5, now 8.8). - Also concern for underlying nephritis given microscopic hematuria Plan: - Given decreased urine output and low GFR, discussed with patient and family that may need to consider dialysis soon. Held today. 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
[2025-04-28] MEDS: FLUTICASONE/SALMETEROL 100/50 14 DOSE INH 1 PUFF INH ×2 (08:15→19:44)
[2025-04-28] MEDS: THIAMINE INJ 100 MG/ML VIAL 2 ML 200 MG IVP (08:30)
[2025-04-28] MEDS: CITRIC ACID/SODIUM CITR 15 ML UDC (BICITRA) 30 ML PO ×2 (08:30→21:35)
[2025-04-28] MEDS: CLOPIDOGREL BISULFATE 75 MG TABLET PO (08:30)
[2025-04-28] MEDS: ZINC SULFATE 220 MG CAPSULE PO (08:30)
[2025-04-28] MEDS: DONEPEZIL HCL 5 MG TABLET PO (08:30)
[2025-04-28] MEDS: ASPIRIN EC 81 MG TABEC PO (08:31)
[2025-04-28] MEDS: ASCORBIC ACID 250 MG TABLET 500 MG PO ×2 (08:31→21:35)
[2025-04-28] MEDS: MONTELUKAST SODIUM 10 MG TABLET PO (08:31)
[2025-04-28] MEDS: NIFEdipine XL 30 MG TABCR PO (08:58)
--- NOTE | 2025-04-28 10:17 | PCS.ST ---
Tolerating CLD and meds with water. Pending colonoscopy. MRI negative for infarct. Pt interviewed. No history of swallowing problems. Speech clear. No formal swallowing evaluation is warranted at this time.
[2025-04-28] MEDS: INSULIN LISPRO (AdmeLOG) 1 UNIT/0.01 ML UNIT SC ×2 (11:57→21:48)
--- NOTE | 2025-04-28 13:57 | ESPR_ITS ---
<Statement entered by Raheem Samson MD - 04/28/25 17:18> Patient was seen and examined at the bedside. No acute overnight events were reported. Patient had a high blood pressure 176/59. Patient was started on nifedipine 30 mg and amlodipine was discontinued. Patient is currently on GoLytely prep and pending on GI recommendations. I discussed and supervised with the record label internship physician who took care of this patient. I personally saw and examined the patient. I agree with most of the assessment and plan. Disclaimer: Despite multiple revisions, due to the dictation software being used, the document bellow may not be free of grammatical errors including phonetic/typographic errors. However, this does not deter from our commitment to providing health care in the patient's best interest in mind. Plan of care discussed with attending Physician Dr. Erwin Samson MD PGY-3 Documentation for date of: 04/28/25 Subjective Subjective Interval history: No overnight events. Patient was examined at bedside; they appear A&Ox3 and in NAD. Vitals/labs today significant for BP 176/59, plt# 106->89, BUN 22->27, creatinine 2.8->3.0. Physical exam was non-contributory. Patient is currently on GoLytely and pending endoscopic studies by GI. Per Nephrology, patient does not require HD at this time. Amlodipine has been discontinued and nifedipine 30 mg PO QD has been started instead for patient's ongoing hypertension. Exam Vital Signs Temp Pulse Resp BP Pulse Ox O2 Del Method O2 Flow Rate 97.8 F 86 17 160/98 H 96 Room Air 3 04/28/25 12:00 04/28/25 12:04/28/25 12:04/28/25 12:04/28/25 12:04/28/25 12:04/27/25 16:49 Narrative Exam General: AOx3, no acute distress, able to speak full sentences HEENT: NC/AT, mucous membranes moist, bilateral sclera anicteric Cardiovascular: regular rate and rhythm, S1/S2 present, no murmurs appreciated Pulmonary: clear to auscultation bilaterally, no rales/rhonchi/wheezes Abdominal: soft, non-tender, non-distended, no rebound/guarding, normal bowel sounds present Musculoskeletal: normal ROM, no peripheral edema Skin: warm and dry, intact, no rashes Neuro: sensation intact, strength 4/5 in upper and lower extremities, eyes do not track but otherwise CN intact Objective Labs 04/29/25 05:22 04/29/25 05:22 Labs: Laboratory Results - last 24 hr 04/26/25 04/27/25 04/28/25 10:03 05:04 05:16 WBC 5.1 RBC 3.61 L Hgb 11.1 L Hct 31.6 L MCV 88 MCH 30.7 MCHC 35.1 RDW Std Deviation 44.6 Plt Count 89 L Neut % (Auto) 57 Lymph % (Auto) 22 [place] % (Auto) 10 Eos % (Auto) 5 Baso % (Auto) 1 Neut # (Auto) 2.9 Lymph # (Auto) 1.1 [place] # (Auto) 0.5 Eos # (Auto) 0.2 Baso # (Auto) 0.1 Immature Gran # (Auto) 0.26 H Absolute Nucleated RBC 0.00 Immature Gran % 5 H Nucleated RBC % 0 Sodium 146 H 143 Potassium 3.6 3.6 Chloride 112 H 107 Carbon Dioxide 16.9 L 23.2 Anion Gap 17 H 13 BUN 22 27 H Creatinine 2.8 H 3.0 H Estim Creat Clear Calc 18.0 L 16.8 L eGFR 18 L 16 L BUN/Creatinine Ratio 8 L 9 L Glucose 159 H D 129 H Calculated Osmolality 296 H 292 Uric Acid 7.3 Calcium 8.5 8.6 Corrected Calcium 9.2 9.4 Phosphorus 3.7 3.4 Magnesium 1.8 1.8 Total Bilirubin 0.4 0.7 AST 22 22 ALT 7 L 11 Alkaline Phosphatase 92 101 Total Protein 5.0 L 4.9 L Albumin 3.1 L 3.0 L Globulin 1.9 L 1.9 L Albumin/Globulin Ratio 1.6 1.6 Triglycerides 194 H Cholesterol 184 LDL Cholesterol, Calc 102 HDL Cholesterol 43 Cholesterol/HDL Ratio 4.3 Vitamin B12 386 Folate 15.54 Quality Measures Quality Measures VTE prophylaxis Advance care planning discussed with:: patient Assessment & Plan Assessment Current Active Medications: Generic Name Dose Route Start Last Admin Trade Name Freq PRN Reason Stop Dose Admin Acetaminophen 650 mg 04/26/25 13:01 Acetaminophen 325 Mg Tablet PO 05/26/25 13:00 Q6H PRN Fever >100.5 or pain 1-3 Hydrocodone Bitart/Acetaminophen 1 tab 12/20/25 13:01 04/26/25 15:34 Hydrocodone/Apap 10/325 Tab PO 05/01/25 13:00 1 tab Q4HR PRN Administration PAIN SCALE 7-10 (Severe Ascorbic Acid 500 mg 04/27/25 09:00 04/28/25 08:31 Ascorbic Acid 250 Mg Tablet PO 05/27/25 08:59 500 mg BID JAYLYN Administration Aspirin 81 mg 04/27/25 09:00 04/28/25 08:31 Aspirin Ec 81 Mg Tabec PO 05/27/25 08:59 81 mg QDAY JAYLYN Administration Calcitriol 0.25 mcg 04/27/25 10:15 04/28/25 08:30 Calcitriol 0.25 Mcg Capsule PO 05/27/25 10:14 0.25 mcg QDAY JAYLYN Administration Citric Acid/Sodium Citrate 30 ml 04/27/25 21:00 04/28/25 08:30 Citric Acid/Sodium Citr 15 Ml Udc (Bicitra) PO 05/27/25 20:59 30 ml BID JAYLYN Administration Clopidogrel Bisulfate 75 mg 04/27/25 09:00 04/28/25 08:30 Clopidogrel Bisulfate 75 Mg Tablet PO 05/27/25 08:59 75 mg QDAY JAYLYN Administration Dextrose 25 ml 04/26/25 13:15 Dextrose 50%-Water Inj 50 Ml Syringe IV 05/26/25 13:14 Q15MIN PRN BG 50-70 responsive npo pt Dextrose 50 ml 04/26/25 13:15 Dextrose 50%-Water Inj 50 Ml Syringe IV 05/26/25 13:14 Q15MIN PRN BG <50 OR BG <70 & pt unresponsive Donepezil HCl 5 mg 04/27/25 09:00 04/28/25 08:30 Donepezil Hcl 5 Mg Tablet PO 05/27/25 08:59 5 mg QDAY JAYLYN Administration Glucagon 1 mg 04/26/25 13:15 Glucagon Inj 1 Mg Vial IM Q15MIN PRN BG <70, and no IV access Insulin Human Lispro 0 unit 04/26/25 13:30 04/28/25 11:57 Insulin Lispro (Admelog) 1 Unit/0.01 Ml Unit SC 05/26/25 13:29 2 unit Q6HR JAYLYN Administration Protocol Labetalol HCl 10 mg 04/26/25 14:31 Labetalol Inj 5 Mg/Ml Vial 4 Ml IVP X1 PRN sbp > 220 or dbp >120 Levothyroxine Sodium 100 mcg 04/27/25 06:00 04/28/25 05:16 Levothyroxine Sodium 100 Mcg Tablet PO 05/27/25 05:59 100 mcg ACBR JAYLYN Administration Meclizine HCl 25 mg 04/26/25 16:57 Meclizine Hcl 25 Mg Tablet PO 05/26/25 16:56 TID PRN DIZZINESS Montelukast Sodium 10 mg 04/27/25 09:00 04/28/25 08:31 Montelukast Sodium 10 Mg Tablet PO 05/27/25 08:59 10 mg DAILY JAYLYN Administration Nifedipine 30 mg 04/28/25 09:00 04/28/25 08:58 Nifedipine Xl 30 Mg Tabcr PO 05/28/25 08:59 30 mg QDAY JAYLYN Administration Ondansetron HCl 4 mg 04/26/25 09:44 Ondansetron Inj 2 Mg/Ml Inj 2 Ml IVP 05/26/25 09:43 Q4HR PRN NAUSEA OR VOMITING Oxycodone/Acetaminophen 1 tab 04/26/25 13:01 Oxycodone/Apap 5/325 Tablet PO 05/01/25 13:00 Q6H PRN PAIN SCALE 4-6 (Moderate Pantoprazole Sodium 40 mg 04/26/25 21:00 04/28/25 08:30 Pantoprazole Inj 40 Mg Vial IVP 05/26/25 20:59 40 mg BID JAYLYN Administration Fluticasone/Salmeterol 1 puff 04/26/25 19:00 04/28/25 08:15 Fluticasone/Salmeterol 100/50 14 Dose Inh INH 05/26/25 18:59 1 puff BIDRT JAYLYN Administration Thiamine HCl 200 mg 04/27/25 09:00 04/28/25 08:30 Thiamine Inj 100 Mg/Ml Vial 2 Ml IVP 05/27/25 08:59 200 mg QDAY JAYLYN Administration Zinc Sulfate 220 mg 04/27/25 09:00 04/28/25 08:30 Zinc Sulfate 220 Mg Capsule PO 05/27/25 08:59 220 mg QDAY JAYLYN Administration Plan 69-year-old female with a past medical history of hypertension, hyperlipidemia, insulin-dependent type 2 diabetes mellitus, gastroparesis, hypothyroidism who was admitted for CVA workup. #CVA workup, stroke ruled out #TIA vs hypertensive encephalopathy vs orthostasis Presents after feeling lightheaded, nauseous, 1 episode of nonbloody emesis after using the restroom. Upon evaluation in ED, son states that patient's speech is not at her baseline. CT head and CTA head/neck negative. MRI negative for acute infarct. BP on admission noted to be 215/89. Teleneurology consulted and recommended admission for further workup. TGL 194, LDL 102, HDL 43. A1c 8.8%. Dx: -04/26 brain MRI ordered, negative -04/[address] ordered, negative -04/26 head/neck CTA ordered, negative for LVO or thrombus -04/26 orthostatic vitals ordered, positive -04/27 echo ordered, showed ___ Rx: -Neurology consulted, appreciate recommendations -Stroke ruled out so no longer permissive hypertension and strict BP control -Aspirin 81 mg and Plavix 75 mg daily -Follow-up physical therapy #GI bleed Endorse having episodes of diarrhea with blood in the stool. Hemoglobin stable, close to patient's baseline at this time. Rx: -GI consulted, appreciate recs -On GoLytely and pending endoscopic studies -Protonix 40 mg BID -NPO for pending EGD #TATY on CKD stage IV 2/2 diabetic nephropathy #Microscopic hematuria, concern for underlying nephritis Recently seen outpatient on 04/24 for follow up. Son reported that patient has had significantly decreased urine output, borderline anuric. Renal panel since 01/20/25 showed significantly worsened renal function with GFR 16, previously GFR 32 on 05/15/24. Discontinued from Farxiga and valsartan earlier this year. Creatinine 3.0 on admission -> 2.8 s/p 1L LR in ED UA 04/27 showed specific gravity 1.046, 3+ protein, 3+ glucose, 1+ blood, 13 RBC, no UTI. Hepatitis panel negative. Likely secondary to worsening, uncontrolled diabetes since May 2024 (A1c 6.5, now 8.8). Also concern for underlying nephritis given microscopic hematuria Rx: -Nephrology consulted, currently does not believe patient requires HD -PPD ordered, follow up results in 48 hours -Follow up bilateral renal US, uric acid, urine electrolytes, and serology testing (SANDY, ANCA, C3, C4) -Strict INOs -Daily weights -Renally dose medications -Avoid nephrotoxic agents -Follow AM renal panel #Hypertension 04/26 admission BP 215/89 Currently still uncontrolled Previously on amlodipine during this visit Rx: -Nifedipine 30 mg PO QD #Dementia History of alzheimer's dementia, takes donepezil 5 mg po qday at home ? Home donepezil 5 mg p.o. daily #COPD Takes Wixela 1 puff daily, singulair (montelukast) albuterol 2 puffs daily ? Fluticasone/salmeterol BID ? Montelukast 10 mg daily #Hypothyroidism History of thyroid surgery ? Levothyroxine 100 mcg daily #Insulin-dependent diabetes mellitus #Gastroparesis Takes Toujeo max 20 units daily, Mounjaro 10 mg weekly. A1c of 8.8%. ? SSI ? Hypoglycemic protocol in place Hospital Management: Disposition: Tele, neuro recs, EGD Diet: NPO, pending EGD GI Prophylaxis: Protonix DVT Prophylaxis: Heparin CODE STATUS: Limited Code (DNI, CPR okay) ----- Plan discussed with attending physician Dr. Kristy Hood DO PGY-1 Internal Medicine Attending Provider Attestation/Addendum I have examined the patient, reviewed labs and imaging findings, discussed the case with the resident(s), and reviewed entered orders. I agree with the plan of care as outlined in this note. Dr. Kristy MD
--- NOTE | 2025-04-28 16:00 | PC.SS ---
rounding note: Pending EGD and MRI. Colonoscopy pending. Plan is home with .
--- NOTE | 2025-04-28 16:31 | PC.NURSE ---
Pt went to colonoscopy at 1630
--- NOTE | 2025-04-28 17:39 | SUR.PHASEI ---
pt received from OR in recovery bay 1. pt asleep but responds to voice, breathing unlabored on 4l nc. v/s stable. report received [facility].
--- NOTE | 2025-04-28 18:24 | SUR.PHASEI ---
pt asleep but responds to voice, breathing unlabored on room air. v/s stable. report called to Naye Zhu. pt will be transferred to room at this time.
[2025-04-29] VITALS (8 sets, daily range): BP systolic 103–144; BP diastolic 45–57; PULSE 70–85; RESP 17–94; TEMP 35.9–36.4; O2SAT 92–98
--- NOTE | 2025-04-29 00:14 | PD.VPROG1 ---
Telemedicine visit statement This visit was conducted with the use of interactive audio and video telecommunications system that permits real time communication between the patient and the provider. Patient's verbal consent for virtual visit was obtained on 04/28/25 Documentation for date of: 04/28/25 Virtual exam Vital Signs Temp Pulse Resp BP Pulse Ox O2 Del Method O2 Flow Rate 96.9 F 76 18 146/56 H 99 Room Air 2 04/28/25 20:00 04/28/25 20:00 04/28/25 20:00 04/28/25 20:00 04/28/25 20:00 04/28/25 20:00 04/28/25 18:00 Objective Labs 04/29/25 05:22 04/29/25 05:22 Labs: Laboratory Results - last 24 hr 04/28/25 05:16 WBC 5.1 RBC 3.61 L Hgb 11.1 L Hct 31.6 L MCV 88 MCH 30.7 MCHC 35.1 RDW Std Deviation 44.6 Plt Count 89 L Neut % (Auto) 57 Lymph % (Auto) 22 [place] % (Auto) 10 Eos % (Auto) 5 Baso % (Auto) 1 Neut # (Auto) 2.9 Lymph # (Auto) 1.1 [place] # (Auto) 0.5 Eos # (Auto) 0.2 Baso # (Auto) 0.1 Immature Gran # (Auto) 0.26 H Absolute Nucleated RBC 0.00 Immature Gran % 5 H Nucleated RBC % 0 Sodium 143 Potassium 3.6 Chloride 107 Carbon Dioxide 23.2 Anion Gap 13 BUN 27 H Creatinine 3.0 H Estim Creat Clear Calc 16.8 L eGFR 16 L BUN/Creatinine Ratio 9 L Glucose 129 H Calculated Osmolality 292 Calcium 8.6 Corrected Calcium 9.4 Phosphorus 3.4 Magnesium 1.8 Total Bilirubin 0.7 AST 22 ALT 11 Alkaline Phosphatase 101 Total Protein 4.9 L Albumin 3.0 L Globulin 1.9 L Albumin/Globulin Ratio 1.6 Assessment & Plan Problem List (1) Stroke-like symptoms: Status: Resolved
[2025-04-29] MEDS: LEVOTHYROXINE SODIUM 100 MCG TABLET PO (05:54)
[2025-04-29 06:22] LABS: Basophils # (Auto) 0.0 Thou/mm3 (0.0-0.2); Basophils % (Auto) 0 % (0-2.5); Eosinophils # (Auto) 0.2 Thou/mm3 (0.0-0.5); Eosinophils % (Auto) 4 % (0-10); Hematocrit 29.1 % (36.0-46.0); Hemoglobin 10.2 g/dL (12.0-16.0); Immature Granulocytes Auto 0.06 Thou/mm3 (0.00-0.00); Lymphocytes # (Auto) 0.9 Thou/mm3 (1.0-4.8); Lymphocytes % (Auto) 17 % (10-50); Mean Corpuscular HGB Conc 35.1 g/dl (31.0-37.0); Mean Corpuscular Hemoglobin 31.2 pg (25.0-35.0); Mean Corpuscular Volume 89 fL (80-100); Monocytes # (Auto) 0.6 Thou/mm3 (0.0-0.8); Monocytes % (Auto) 11 % (0-12); Neutrophils # (Auto) 3.4 Thou/mm3 (1.8-7.7); Neutrophils % (Auto) 66 % (37-80); Nucleated Red Blood Cell # 0.00 Thou/mm3 (0.00-0.00); Nucleated Red Blood Cell % 0 /100 WBC (0); Platelet Count 114 Thou/mm3 (140-440); RDW Standard Deviation 45.6 fL (36.4-46.3); Red Blood Count 3.27 Miln/mm3 (4.00-5.20); White Blood Count 5.2 Thou/mm3 (3.6-11.0)
[2025-04-29] MEDS: FLUTICASONE/SALMETEROL 100/50 14 DOSE INH 1 PUFF INH (06:34)
[2025-04-29 06:49] LABS: Alanine Aminotransferase < 7 U/L (10-49); Albumin, Serum 3.0 gm/dL (3.4-4.8); Albumin/Globulin Ratio 1.8 (1.2-2.2); Alkaline Phosphatase 91 U/L (46-116); Anion Gap 12 (7-16); Aspartate Amino Transferase 18 U/L (0-34); BUN/Creatinine Ratio 6 Ratio (12-20); Bilirubin,Total 0.5 mg/dL (0.3-1.2); Blood Urea Nitrogen 19 mg/dL (9-23); Calcium 8.3 mg/dL (8.3-10.6); Calcium (Corrected) 9.1 mg/dL (8.5-10.1); Carbon Dioxide 23.7 mMol/L (20.0-31.0); Chloride 108 mMol/L (98-107); Creatinine (Component) 3.1 mg/dL (0.6-1.3); Estimated Creatinine Clearance 16.3 mL/min (>60); Globulin 1.7 gm/dL (2.3-3.5); Glucose 234 mg/dL (74-106); Magnesium 1.7 mg/dL (1.6-2.6); Osmolality,Calculated 297 (275-295); Phosphorous 3.5 mg/dL (2.4-5.1); Potassium 3.6 mMol/L (3.4-5.1); Sodium 144 mMol/L (136-145); Total Protein 4.7 gm/dL (5.7-8.2); eGFR 16 See Note
[2025-04-29] MEDS: INSULIN LISPRO (AdmeLOG) 1 UNIT/0.01 ML UNIT SC ×2 (07:39→13:12)
[2025-04-29] MEDS: ASCORBIC ACID 250 MG TABLET 500 MG PO (09:59)
[2025-04-29] MEDS: CLOPIDOGREL BISULFATE 75 MG TABLET PO (09:59)
[2025-04-29] MEDS: ASPIRIN EC 81 MG TABEC PO (09:59)
[2025-04-29] MEDS: ZINC SULFATE 220 MG CAPSULE PO (10:00)
[2025-04-29] MEDS: DONEPEZIL HCL 5 MG TABLET PO (10:00)
[2025-04-29] MEDS: MONTELUKAST SODIUM 10 MG TABLET PO (10:00)
[2025-04-29] MEDS: NIFEdipine XL 30 MG TABCR PO (10:00)
[2025-04-29] MEDS: CITRIC ACID/SODIUM CITR 15 ML UDC (BICITRA) 30 ML PO (10:00)
[2025-04-29] MEDS: THIAMINE INJ 100 MG/ML VIAL 2 ML 200 MG IVP (10:02)
[2025-04-29] MEDS: Magnesium Sulfate 4 GM Ivpb 4 GM/50 ML BAG IV (10:12)
[2025-04-29] MEDS: INSULIN LISPRO (AdmeLOG) 1 UNIT/0.01 ML UNIT 5 UNIT SC (10:22)
--- NOTE | 2025-04-29 11:09 | ESPR_ITS ---
Documentation for date of: 04/29/25 Exam Vital Signs Temp Pulse Resp BP Pulse Ox O2 Del Method O2 Flow Rate 97.2 F 70 18 118/48 L 92 L Room Air 2 04/29/25 08:05 04/29/25 10:00 04/29/25 08:05 04/29/25 10:00 04/29/25 08:05 04/29/25 08:05 04/28/25 18:00 Objective Labs 04/29/25 05:22 04/29/25 05:22 Labs: Laboratory Results - last 24 hr 04/29/25 05:22 WBC 5.2 RBC 3.27 L Hgb 10.2 L Hct 29.1 L MCV 89 MCH 31.2 MCHC 35.1 RDW Std Deviation 45.6 Plt Count 114 L D Neut % (Auto) 66 Lymph % (Auto) 17 [place] % (Auto) 11 Eos % (Auto) 4 Baso % (Auto) 0 Neut # (Auto) 3.4 Lymph # (Auto) 0.9 L [place] # (Auto) 0.6 Eos # (Auto) 0.2 Baso # (Auto) 0.0 Immature Gran # (Auto) 0.06 H Absolute Nucleated RBC 0.00 Immature Gran % 1 H Nucleated RBC % 0 Sodium 144 Potassium 3.6 Chloride 108 H Carbon Dioxide 23.7 Anion Gap 12 BUN 19 Creatinine 3.1 H Estim Creat Clear Calc 16.3 L eGFR 16 L BUN/Creatinine Ratio 6 L Glucose 234 H D Calculated Osmolality 297 H Calcium 8.3 Corrected Calcium 9.1 Phosphorus 3.5 Magnesium 1.7 Total Bilirubin 0.5 AST 18 ALT < 7 L Alkaline Phosphatase 91 Total Protein 4.7 L Albumin 3.0 L Globulin 1.7 L Albumin/Globulin Ratio 1.8 Assessment & Plan A&P Narrative # Anemia multifactorial Other medical problems include IDDM Essential hypertension Hyperlipidemia CKD stage III Hypothyroidism Dementia Plan N.p.o. midnight tonight except p.o. meds Consent for fiberoptic esophagogastroduodenoscopy biopsy therapeutic intervention under intravenous moderate sedation scheduled for tomorrow afternoon Will follow the patient patient son was in the room 373 and got the permission from him for the procedure initially endoscopy if that is negative we will consider a colonoscopy prior to discharge Thank you for the opportunity to participate in care of this patient Time Spent With Patient Time: Total time spent is greater than 50% in coordination of care (as documented) at patient's floor/unit and/or counseling patient:
--- NOTE | 2025-04-29 11:28 | ESDS_ITS ---
<Statement entered by Brenden Sanches MD - 05/03/25 12:57> I reviewed above note and agree with findings and plans. I have also personally examined the patient with medicine team and went over assessment and plan with medical team including integrated marketing intern and resident physician. Planned Discharge Date 04/29/25 DS: Providers Provider Date of admission: 04/26/25 12:05 Primary care physician: Kuldeep Abrams MD Admitting Provider: Julián Wagner MD Attending Provider on Admission: Julián Wagner MD Consults: 04/26/25 13:09 Consult to Gastroenterology Routine Comment: Consulting Provider: Melba Isidro Consult to Nephrology Routine Comment: Consulting Provider: Evelyn Sparks 04/26/25 13:15 Referral Physical Therapy Routine Comment: Physician Instructions: Referral Speech Therapy Routine Comment: 04/26/25 13:29 Consult to Neurology / Tele-Neurology Routine Comment: Consulting Provider: Adelfo Hill Attending Provider on DC: Brenden Sanches MD Discharging Provider: Norman Hood MD DS: Diagnosis Problem List Completed Was Problem List Reviewed/Reconciled?: Yes Hospital Course Hospital Course Hospital course: Summary: 69-year-old female with a past medical history of hypertension, hyperlipidemia, insulin-dependent type 2 diabetes mellitus, gastroparesis, hypothyroidism who was admitted for CVA workup. Hospital: During patient's hospital course, she was initially placed on stroke protocol (received aspirin and Plavix) but head CT, head/neck CTA, brain MRI, and echo bubble study all eventually resulted as negative. Orthostatic vitals positive. Colonoscopy performed due to patient complaints of hematochezia showed internal hemorrhoids, moderate diverticulosis of sigmoid and descending colon, and mu ltiple non-bleeding angiodysplastic lesions. Nephrology had been consulted and evaluated the patient for her CKD, eventually deeming that she did not require HD. By 04/29, patient was deemed clinically stabilized and discharged home with home health. Patient is safe to discharge. Further discharge instructions below. Discharge Recommendations: -Follow up with your extract operator, Dr. Sparks, as soon as possible for continued management of your kidney disease. -Follow up with PCP within 1 week of discharge -We have started you on some new medications, please take the followin. ascorbic acid (vitamin C) 500 mg twice per day 2. aspirin 81 mg once per day 3. nifedipine [Procardia XL] 30 mg once per day 4. pantoprazole [Protonix] 40 mg once per day 5. sodium citrate-citric acid 500-334 mg/5 mL solution twice per day -Please stop taking the following medications: 1. amlodipine 2. Mounjaro 3. valsartan -Continue rest of medications as previously prescribed (especially calcitriol 0.25 mcg once per day) -Continue taking 20 units of Lantus as you have been previously -Return to the ED or call EMS if symptoms return and/or worsen. Hospital Diagnoses: #CVA workup, stroke ruled out #TIA vs hypertensive encephalopathy vs orthostasis #GI bleed #TATY on CKD stage IV 2/2 diabetic nephropathy #Microscopic hematuria, concern for underlying nephritis #Hypertension #Dementia #COPD #Hypothyroidism #Insulin-dependent diabetes mellitus #Gastroparesis Patient's care plan was discussed with my attending, Dr. Sanches, and senior resident, Dr. Samson. Norman Hood, DO Internal Medicine, PGY-1 Time Spent with Patient Time attestation: Total time spent providing and/or coordinating discharge services: Time spent: Greater than 30 minutes Exam Vital Signs Temp Pulse Resp BP Pulse Ox O2 Del Method O2 Flow Rate 97.2 F 70 18 118/48 L 92 L Room Air 2 04/29/25 08:05 04/29/25 10:00 04/29/25 08:05 04/29/25 10:00 04/29/25 08:05 04/29/25 08:05 04/28/25 18:00 Narrative Exam General: AOx3, no acute distress, able to speak full sentences HEENT: NC/AT, mucous membranes moist, bilateral sclera anicteric Cardiovascular: regular rate and rhythm, S1/S2 present, no murmurs appreciated Pulmonary: clear to auscultation bilaterally, no rales/rhonchi/wheezes Abdominal: soft, non-tender, non-distended, no rebound/guarding, normal bowel sounds present Musculoskeletal: normal ROM, no peripheral edema Skin: warm and dry, intact, no rashes Neuro: sensation intact, strength 4/5 in upper and lower extremities, eyes do not track but otherwise CN intact Discharge Plan Plan Patient Disposition: Home w/HOME HEALTH Care Plan Goals: Discharge Recommendations: -Follow up with your extract operator, Dr. Sparks, as soon as possible for continued management of your kidney disease. -Follow up with PCP within 1 week of discharge -We have started you on some new medications, please take the followin. ascorbic acid (vitamin C) 500 mg twice per day 2. aspirin 81 mg once per day 3. nifedipine [Procardia XL] 30 mg once per day 4. pantoprazole [Protonix] 40 mg once per day 5. sodium citrate-citric acid 500-334 mg/5 mL solution twice per day -Please stop taking the following medications: 1. amlodipine 2. Mounjaro 3. valsartan -Continue rest of medications as previously prescribed (especially calcitriol 0.25 mcg once per day) -Continue taking 20 units of Lantus as you have been previously -Return to the ED or call EMS if symptoms return and/or worsen. Prescriptions/Referrals Prescriptions/Med Rec: New (DME) FreeStyle Darek 3 Plus Sensor Device See Rx Instructions .Route Qty: 1 3RF Rx Instructions: As directed (DME) FreeStyle Darek 3 [place] Misc See Rx Instructions .Route Qty: 1 0RF Rx Instructions: As directed ascorbic acid (vitamin C) 500 mg capsule 500 mg PO BID Qty: 90 0RF aspirin 81 mg Tablet,Delayed Release (Dr/Ec) 81 mg PO QDAY Qty: 60 0RF nifedipine [Procardia XL] 30 mg tablet extended release 24hr 30 mg PO QDAY 90 Days Qty: 90 0RF sodium citrate-citric acid 500-334 mg/5 mL solution 30 ml PO BID Qty: 1200 0RF pantoprazole [Protonix] 40 mg tablet,delayed release (DR/EC) 40 mg PO QDAY Qty: 60 0RF Continued meclizine 25 mg tablet 25 mg PO TID PRN (Reason: Dizziness) Patient Comments: TAKE 1 TABLET BY MOUTH 3 TIMES A DAY NEEDED FOR DIZZINESS montelukast 10 mg tablet 10 mg PO DAILY Patient Comments: TAKE 1 TABLET BY MOUTH EVERY DAY IN THE EVENING rosuvastatin 40 mg tablet 25 mg PO DAILY Patient Comments: TAKE 1 TABLET BY MOUTH EVERY DAY pregabalin 150 mg capsule 150 mg PO BID Patient Comments: TAKE 1 CAPSULE BY MOUTH TWICE A DAY insulin glargine U-300 conc [Toujeo Max U-300 SoloStar] 300 unit/mL (3 mL) insulin pen 20 unit SUBCUT DAILY Patient Comments: INJECT 60UNITS SUBCUTANEOUSLY EVERY DAY IN THE MORNING donepezil 5 mg tablet 5 mg PO QDAY Patient Comments: TAKE 1 TABLET BY MOUTH EVERY DAY IN THE EVENING clopidogrel 75 mg tablet 75 mg PO QDAY Patient Comments: TAKE 1 TABLET (75 MG) BY ORAL ROUTE ONCE DAILY FOR BLOOD CLOT PREVENTION levothyroxine 100 mcg tablet 100 mcg PO QDAY Patient Comments: TAKE 1 TABLET (100 MCG) BY ORAL ROUTE ONCE DAILY EVERY MORNING ON AN EMPTY STOMACH BY ITSELF albuterol sulfate 90 mcg/actuation HFA aerosol inhaler 2 puff INHALATION QDAY Patient Comments: PLEASE SEE ATTACHED FOR DETAILED DIRECTIONS hydrocodone-acetaminophen 10-325 mg tablet 1 tab PO Q6HR Patient Comments: TAKE 1 TABLET BY ORAL ROUTE EVERY 12 HOURS NEEDED FOR CHRONIC SEVERE PAIN fluticasone propion-salmeterol [Wixela Inhub] 500-50 mcg/dose blister with device 1 inh INHALATION BID Patient Comments: INHALE 1 PUFF BY MOUTH 2 TIMES PER DAY GARGLE WITH WATER AFTER EACH USE zinc sulfate 50 mg zinc (220 mg) capsule 50 mg PO DAILY Patient Comments: TAKE 1 CAPSULE BY MOUTH EVERY DAY calcitriol 0.25 mcg capsule 0.25 mcg PO DAILY 90 Days Qty: 90 0RF Patient Comments: TAKE 1 CAPSULE BY MOUTH EVERY DAY Discontinued valsartan 160 mg tablet 160 mg PO EVERYOTHERDAY Patient Comments: TAKE 1 TABLET BY MOUTH EVERY DAY amlodipine 2.5 mg tablet 2.5 mg PO QDAY Patient Comments: TAKE 1 TABLET (2.5 MG) BY ORAL ROUTE ONCE DAILY FOR HIGH BLOOD PRESSURE Mounjaro 10 mg/0.5 mL pen injector 10 mg subcut QWEEK Referrals: Kuldeep Abrams MD [Primary Care Provider, Family Practice] Evelyn Sparks MD [Physician, Nephrology] Patient/Caregiver Discharge Instructions Education Materials: Colonoscopy, Upper GI Endoscopy, ED Symptoms With Uncertain Cause Print Language: Serbian Discharge Order Discharge Orders: Discharge (Routine); Ordered 04/29/25 Ordered By: Raheem Samson Quality Discharge Quality Measures VTE prophylaxis and stroke Statin ordered >75 y/o:moderate or high intensity dose on DC: n/a Statin ordered <75 y/o: high intensity dose on DC: yes Statin not ordered due to:: not indicated Anticoagulation ordered for A-fib or flutter (current or hx): not indicated Antithrombotic ordered on DC: not indicated (describe)
--- NOTE | 2025-04-30 08:14 | PC.CC ---
Patient referred to [facility], start of care 05/02/25.
[2025-05-05 07:14] LABS: ANA Screen, IFA NEGATIVE (NEGATIVE); Complement Component C3* 120 mg/dL (83-193); Complement Component C4c* 25 mg/dL (15-57)
[2025-05-06 06:30] LABS: ANCA Screen NEGATIVE (NEGATIVE); Myeloperoxidase Ab <1.0 AI (<1.0); Proteinase-3 Ab <1.0 AI (<1.0)
== END 2025-04-29 13:57 | disposition home health service (06) | DRG 92 ==
LOC: SERX 11:57 → SERHOLD 12:44 → S3SX 21:17
PROVIDERS: Internal Medicine; Specialist; Admitting Provider Student in an Organized Health Care Education/Training Program; Emergency Provider Emergency Medicine; PCP Family Medicine; Visit Provider Student in an Organized Health Care Education/Training Program
PROC: (CPT 43239; principal; 2025-04-27 17:00)
PROC: 0DJD8ZZ Inspection of Lower Intestinal Tract, Via Natural or Artificial Opening Endoscopic (ICD-10-PCS; CPT 45378; principal; 2025-04-28 16:15)
DX: R47.81 Slurred speech (principal); E87.20 Acidosis, unspecified; I16.1 Hypertensive emergency; N18.4 Chronic kidney disease, stage 4 (severe); N17.9 Acute kidney failure, unspecified; E11.65 Type 2 diabetes mellitus with hyperglycemia; E11.22 Type 2 diabetes mellitus with diabetic chronic kidney disease; I12.9 Hypertensive chronic kidney disease with stage 1 through stage 4 chronic kidney disease, or unspecified chronic kidney disease; E03.9 Hypothyroidism, unspecified; F02.80 Dementia in other diseases classified elsewhere, unspecified severity, without behavioral disturbance, psychotic disturbance, mood disturbance, and anxiety; G30.9 Alzheimer's disease, unspecified; J44.9 Chronic obstructive pulmonary disease, unspecified; K64.1 Second degree hemorrhoids; E63.9 Nutritional deficiency, unspecified; D69.6 Thrombocytopenia, unspecified; R31.29 Other microscopic hematuria; K31.84 Gastroparesis; E11.43 Type 2 diabetes mellitus with diabetic autonomic (poly)neuropathy; G89.4 Chronic pain syndrome; D63.1 Anemia in chronic kidney disease; Z79.890 Hormone replacement therapy; Z79.4 Long term (current) use of insulin; K55.20 Angiodysplasia of colon without hemorrhage; K57.30 Diverticulosis of large intestine without perforation or abscess without bleeding; N27.1 Small kidney, bilateral; R29.6 Repeated falls; Z66 Do not resuscitate; Z79.02 Long term (current) use of antithrombotics/antiplatelets; Z79.85 Long-term (current) use of injectable non-insulin antidiabetic drugs; Z79.899 Other long term (current) drug therapy; R47.1 Dysarthria and anarthria; R27.0 Ataxia, unspecified
CPT/HCPCS: 36415; 70450; 70496; 70498; 70544; 71045; 76770; 80053; 80061; 80307; 80320; 81001; 82248; 82570; 82607; 82746; 83036; 83540; 83550; 83605; 83735; 83880; 84100; 84145; 84156; 84300; 84439; 84443; 84484; 84550; 85025; 85610; 85652; 85730; 86021; 86036; 86038; 86140; 86160; 86580; 87040; 87077; 87086; 87186; 87502; 87635; 93005; 93225; 93306; 94640; 96361; 96374; 97161; 97162; 99285; A4649; J1200; J1815; J1920; J2060; J2250; J2470; J3010; J3411; J3475; J7120; Q9967; A9270; G0480